=== PATIENT | male | born 1935 | race Caucasian/White ===

== ENCOUNTER 2017-05-12 11:07 | Inpatient (IN) | payer OTHER ==
[~2017-05-12] VITALS: Ht 182.9 cm; Wt 77.0 kg
[~2017-05-12 11:07] MED LIST: ALD25 PO; ASPI-COR81 M3 PO; DILTIAZEM120 M1 PO; FLA500 PO; METOPROLOL SUCC50 M1 PO; POTASSIMIN75 MG PO; POTASSIUM CHLO10 MEQ PO; XARELTO15 M1 PO
[2017-05-12 11:58] LABS: BASOPHIL % 0.5 % (0-2)
[2017-05-12 12:09] LABS: PLATELET COUNT 88 x10^3mcL (130-400); RED CELL DISTRIBUTION WIDTH 14.9 % (11.5-14.5)
[2017-05-12 12:16] LABS: CALCIUM 8.8 mg/dL (8.5-10.1); CARBON DIOXIDE 29.2 mmol/L (21-32); CHLORIDE SERUM 107 mmol/L (98-107); CREATININE SERUM 1.5 mg/dL (0.7-1.3); GLUCOSE SERUM 145 mg/dL (74-106); POTASSIUM SERUM 3.1 mmol/L (3.5-5.1); SODIUM SERUM 143 mmol/L (136-145)
[2017-05-12] MEDS ORDERED: ALDACTONE25 MG PO (13:55)
[2017-05-12] MEDS ORDERED: LOP100 PO (13:56)
[2017-05-12] MEDS ORDERED: LASIX20 MG PO (13:56)
[2017-05-12] MEDS ORDERED: LISINOPRIL40 MG PO (13:58)
[2017-05-12 14:29] LABS: T3 TOTAL 0.88 ng/mL
[2017-05-12 14:44] LABS: ALBUMIN 3.4 g/dL (3.4-5.0); BILIRUBIN DIRECT 0.2 mg/dL (0.0-0.2); BILIRUBIN TOTAL 0.7 mg/dL (0.20-1.00); TOTAL PROTEIN, SERUM 6.6 g/dL (6.4-8.2)
[2017-05-12 14:46] LABS: CHOLESTEROL/HDL RATIO 1.9
[2017-05-12 14:56] LABS: FREE T4 1.15 ng/dL (0.76-1.46); T4(THYROXINE) 8.2 ug/dL (4.7-13.3)
[2017-05-12 14:57] VITALS: BP 118/74
[2017-05-12 18:03] VITALS: BP 140/68
[2017-05-12 21:51] VITALS: BP 130/65
[2017-05-12 22:48] LABS: microscopic required? YES; urine erythrocyte 1+ (NEGATIVE)
[2017-05-13 05:42] VITALS: BP 137/71
[2017-05-13 06:18] LABS: CARBON DIOXIDE 30.2 mmol/L (21-32); CHLORIDE SERUM 106 mmol/L (98-107); CREATININE SERUM 1.4 mg/dL (0.7-1.3); GLUCOSE SERUM 103 mg/dL (74-106); MAGNESIUM 1.5 mg/dL (1.8-2.4); PHOSPHOROUS 4.1 mg/dL (2.5-4.9); POTASSIUM SERUM 3.2 mmol/L (3.5-5.1); SODIUM SERUM 142 mmol/L (136-145)
[2017-05-13 06:22] LABS: BASOPHIL % 0.2 % (0-2)
[2017-05-13 07:22] LABS: PLATELET COUNT 78 x10^3mcL (130-400); RED CELL DISTRIBUTION WIDTH 14.6 % (11.5-14.5)
[2017-05-13 08:00] VITALS: BP 138/86
[2017-05-13 13:53] VITALS: BP 121/62
[2017-05-13 17:37] VITALS: BP 115/58
[2017-05-13 19:30] VITALS: BP 103/57
[2017-05-13 21:04] VITALS: BP 110/61
[2017-05-14 06:26] LABS: CALCIUM 7.9 mg/dL (8.5-10.1); CHLORIDE SERUM 105 mmol/L (98-107); CREATININE SERUM 1.4 mg/dL (0.7-1.3); GLUCOSE SERUM 104 mg/dL (74-106); MAGNESIUM 1.8 mg/dL (1.8-2.4); PHOSPHOROUS 4.2 mg/dL (2.5-4.9); POTASSIUM SERUM 3.4 mmol/L (3.5-5.1); SODIUM SERUM 141 mmol/L (136-145)
[2017-05-14 06:45] VITALS: BP 143/80
[2017-05-14 07:06] LABS: BASOPHIL % 0.3 % (0-2); PLATELET COUNT 74 x10^3mcL (130-400); RED CELL DISTRIBUTION WIDTH 14.7 % (11.5-14.5)
[2017-05-14 10:05] VITALS: BP 105/50
[2017-05-14 13:45] VITALS: BP 113/70
[2017-05-14 18:35] VITALS: BP 103/49
[2017-05-14 21:50] VITALS: BP 131/62
[2017-05-15 06:42] VITALS: BP 133/57
[2017-05-15 06:42] LABS: BASOPHIL % 0.2 % (0-2); RED CELL DISTRIBUTION WIDTH 14.5 % (11.5-14.5)
[2017-05-15 06:50] LABS: PLATELET COUNT 77 x10^3mcL (130-400)
[2017-05-15 07:01] LABS: CALCIUM 8.4 mg/dL (8.5-10.1); CARBON DIOXIDE 29.5 mmol/L (21-32); CHLORIDE SERUM 103 mmol/L (98-107); CREATININE SERUM 1.6 mg/dL (0.7-1.3); GLUCOSE SERUM 119 mg/dL (74-106); MAGNESIUM 1.8 mg/dL (1.8-2.4); PHOSPHOROUS 4.8 mg/dL (2.5-4.9); SODIUM SERUM 141 mmol/L (136-145)
[2017-05-15 07:13] LABS: POTASSIUM SERUM 2.8 mmol/L (3.5-5.1)
[2017-05-15 09:37] VITALS: BP 124/53
[2017-05-15 17:40] VITALS: BP 130/55
[2017-05-15 21:19] VITALS: BP 123/63
[2017-05-16 05:46] VITALS: BP 131/55
[2017-05-16 06:14] LABS: CALCIUM 8.3 mg/dL (8.5-10.1); CARBON DIOXIDE 29.4 mmol/L (21-32); CHLORIDE SERUM 105 mmol/L (98-107); CREATININE SERUM 1.6 mg/dL (0.7-1.3); GLUCOSE SERUM 113 mg/dL (74-106); POTASSIUM SERUM 3.1 mmol/L (3.5-5.1); SODIUM SERUM 142 mmol/L (136-145)
[2017-05-16 06:31] LABS: BASOPHIL % 0.5 % (0-2)
[2017-05-16 06:32] LABS: PLATELET COUNT 82 x10^3mcL (130-400); RED CELL DISTRIBUTION WIDTH 14.9 % (11.5-14.5)
[2017-05-16 13:30] VITALS: BP 122/63
[2017-05-16 18:38] VITALS: BP 109/55
[2017-05-16 22:07] VITALS: BP 116/55
[2017-05-17 06:15] LABS: CALCIUM 8.6 mg/dL (8.5-10.1); CARBON DIOXIDE 27.4 mmol/L (21-32); CHLORIDE SERUM 107 mmol/L (98-107); CREATININE SERUM 1.5 mg/dL (0.7-1.3); GLUCOSE SERUM 133 mg/dL (74-106); POTASSIUM SERUM 3.4 mmol/L (3.5-5.1); SODIUM SERUM 147 mmol/L (136-145)
[2017-05-17 06:27] VITALS: BP 125/57
[2017-05-17 06:36] LABS: BASOPHIL % 0 % (0-2); PLATELET COUNT 94 x10^3mcL (130-400); RED CELL DISTRIBUTION WIDTH 14.7 % (11.5-14.5)
[2017-05-17 09:42] VITALS: BP 118/48
[2017-05-17 16:30] VITALS: BP 105/54
[2017-05-17 17:15] VITALS: BP 101/43
[2017-05-17 18:30] VITALS: BP 105/54
[2017-05-17 21:20] VITALS: BP 114/48
[2017-05-18 06:43] VITALS: BP 111/53
[2017-05-18 07:30] LABS: BASOPHIL % 0 % (0-2); PLATELET COUNT 71 x10^3mcL (130-400); RED CELL DISTRIBUTION WIDTH 15.2 % (11.5-14.5)
[2017-05-18 08:01] LABS: CALCIUM 7.8 mg/dL (8.5-10.1); CARBON DIOXIDE 28.4 mmol/L (21-32); CHLORIDE SERUM 110 mmol/L (98-107); CREATININE SERUM 1.4 mg/dL (0.7-1.3); GLUCOSE SERUM 125 mg/dL (74-106); MAGNESIUM 1.7 mg/dL (1.8-2.4); PHOSPHOROUS 3.1 mg/dL (2.5-4.9); POTASSIUM SERUM 3.1 mmol/L (3.5-5.1); SODIUM SERUM 145 mmol/L (136-145)
[2017-05-18 09:15] VITALS: BP 104/51
[2017-05-18 09:48] LABS: rbc morphology (normal/abnorm) ABNORMAL (NORMAL)
[2017-05-18 13:45] LABS: BASOPHIL % 0.2 % (0-2)
[2017-05-18 14:01] VITALS: BP 104/51
[2017-05-18 14:01] LABS: PLATELET COUNT 87 x10^3mcL (130-400); RED CELL DISTRIBUTION WIDTH 14.3 % (11.5-14.5)
[2017-05-18 15:44] LABS: PLATELET COUNT 92 x10^3mcL (130-400); RED CELL DISTRIBUTION WIDTH 13.8 % (11.5-14.5)
[2017-05-18 16:21] LABS: MONOCYTE 10 % (0-7); SEGMENTED NEUTROPHILS 84 % (37-75)
[2017-05-18 16:21] LABS: ALKALINE PHOSPHATASE 11 U/L (46-116); ALT/SGPT 20 U/L (16-63); AST/SGOT 28 U/L (15-37); CALCIUM 7.9 mg/dL (8.5-10.1); CARBON DIOXIDE 28.4 mmol/L (21-32); CHLORIDE SERUM 109 mmol/L (98-107); CREATININE SERUM 1.5 mg/dL (0.7-1.3); GLUCOSE SERUM 133 mg/dL (74-106); POTASSIUM SERUM 3.4 mmol/L (3.5-5.1); SODIUM SERUM 145 mmol/L (136-145)
[2017-05-18 16:24] LABS: rbc morphology (normal/abnorm) NORMAL (NORMAL)
[2017-05-18 16:26] LABS: ALBUMIN 2.6 g/dL (3.4-5.0); TOTAL PROTEIN, SERUM 5.7 g/dL (6.4-8.2)
[2017-05-18 16:49] VITALS: BP 117/56
[2017-05-18 21:03] VITALS: BP 111/54
[2017-05-18 21:24] VITALS: BP 124/67
[2017-05-19 01:40] VITALS: BP 122/69
[2017-05-19 05:50] VITALS: BP 134/63
[2017-05-19 06:56] LABS: CALCIUM 7.7 mg/dL (8.5-10.1); CARBON DIOXIDE 26.3 mmol/L (21-32); CHLORIDE SERUM 113 mmol/L (98-107); CREATININE SERUM 1.3 mg/dL (0.7-1.3); GLUCOSE SERUM 109 mg/dL (74-106); MAGNESIUM 1.8 mg/dL (1.8-2.4); PHOSPHOROUS 2.9 mg/dL (2.5-4.9); SODIUM SERUM 150 mmol/L (136-145)
[2017-05-19 07:06] LABS: POTASSIUM SERUM 2.8 mmol/L (3.5-5.1)
[2017-05-19 07:08] LABS: BASOPHIL % 0.1 % (0-2)
[2017-05-19 07:11] LABS: PLATELET COUNT 90 x10^3mcL (130-400); RED CELL DISTRIBUTION WIDTH 18.6 % (11.5-14.5)
[2017-05-19 10:34] VITALS: BP 133/58
[2017-05-19 14:18] VITALS: BP 104/51
[2017-05-19 16:42] LABS: CALCIUM 7.8 mg/dL (8.5-10.1); CARBON DIOXIDE 27.3 mmol/L (21-32); CHLORIDE SERUM 112 mmol/L (98-107); CREATININE SERUM 1.5 mg/dL (0.7-1.3); GLUCOSE SERUM 151 mg/dL (74-106); POTASSIUM SERUM 3.2 mmol/L (3.5-5.1); SODIUM SERUM 148 mmol/L (136-145)
[2017-05-19 17:12] VITALS: BP 125/64
== END 2017-05-19 18:25 | DRG 480 ==
LOC: ED 11:07 → MU 13:45 → DU 13:45 → MU 05-16 15:24
PROVIDERS: Emergency Medicine; Family Medicine; Internal Medicine Cardiovascular Disease; Neuromusculoskeletal Medicine, Sports Medicine; ADMIT Family Medicine
PROC: 2W3LX2Z Immobilization of Right Lower Extremity using Cast (ICD-10-PCS; 2017-05-13)
PROC: 30233N1 Transfusion of Nonautologous Red Blood Cells into Peripheral Vein, Percutaneous Approach (ICD-10-PCS; 2017-05-16)
PROC: 0HBRXZZ Excision of Toe Nail, External Approach (ICD-10-PCS; 2017-05-16)
PROC: 0HBRXZZ Excision of Toe Nail, External Approach (ICD-10-PCS; 2017-05-16)
PROC: 0HBRXZZ Excision of Toe Nail, External Approach (ICD-10-PCS; 2017-05-16)
PROC: 0HBRXZZ Excision of Toe Nail, External Approach (ICD-10-PCS; 2017-05-16)
PROC: 0HBRXZZ Excision of Toe Nail, External Approach (ICD-10-PCS; 2017-05-16)
PROC: 0HBRXZZ Excision of Toe Nail, External Approach (ICD-10-PCS; 2017-05-16)
PROC: 0HBRXZZ Excision of Toe Nail, External Approach (ICD-10-PCS; 2017-05-16)
PROC: 0HBRXZZ Excision of Toe Nail, External Approach (ICD-10-PCS; 2017-05-16)
PROC: 0HBRXZZ Excision of Toe Nail, External Approach (ICD-10-PCS; 2017-05-16)
PROC: 0HBRXZZ Excision of Toe Nail, External Approach (ICD-10-PCS; 2017-05-16)
PROC: 0QSB04Z Reposition Right Lower Femur with Internal Fixation Device, Open Approach (ICD-10-PCS; principal; 2017-05-16 08:00)
DX: S72.451A Displaced supracondylar fracture without intracondylar extension of lower end of right femur, initial encounter for closed fracture (principal); I50.43 Acute on chronic combined systolic (congestive) and diastolic (congestive) heart failure; N17.0 Acute kidney failure with tubular necrosis; I13.0 Hypertensive heart and chronic kidney disease with heart failure and stage 1 through stage 4 chronic kidney disease, or unspecified chronic kidney disease; E87.6 Hypokalemia; D53.9 Nutritional anemia, unspecified; K56.41 Fecal impaction; S09.90XA Unspecified injury of head, initial encounter; W01.0XXA Fall on same level from slipping, tripping and stumbling without subsequent striking against object, initial encounter; Z53.29 Procedure and treatment not carried out because of patient's decision for other reasons; I48.2 Chronic atrial fibrillation; B35.1 Tinea unguium; N18.3 Chronic kidney disease, stage 3 (moderate); Z91.81 History of falling; Y92.017 Garden or yard in single-family (private) house as the place of occurrence of the external cause; Y93.89 Activity, other specified; Y99.8 Other external cause status; Z79.82 Long term (current) use of aspirin; Z79.899 Other long term (current) drug therapy; Z88.1 Allergy status to other antibiotic agents; Z88.8 Allergy status to other drugs, medicaments and biological substances; Z83.3 Family history of diabetes mellitus; Z82.49 Family history of ischemic heart disease and other diseases of the circulatory system; Z82.3 Family history of stroke
CPT/HCPCS: 76001; 83880; 84439; 92610; 97110-GP; 97116-GP; 97164; 97530-GP; C1713; J0690; J1630; J1644; J1940; J1956; J2250; J2270; J2405; J2704; J3010; J3475; J3480; J3490; J7030; J7040; J7050; J7120; P9016; Q0092; Q0163

== ENCOUNTER 2019-01-18 16:30 | Inpatient (IN) | payer OTHER ==
[~2019-01-18] VITALS: Ht 185.4 cm; Wt 69.2 kg
[~2019-01-18 16:30] MED LIST changes: +ALDACTONE25 MG PO; +LASIX20 MG PO; +LISINOPRIL40 MG PO; +LOP100 PO
--- NOTE | 2019-01-18 16:40 | NUR ---
PT PRESENTS TO THE ED TODAY WITH C/C OF ABD PAIN. 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 DAUGHTER IS A POOR HISTORIAN. UNABLE TO TELL ME HOW LONG PT HAS HAD BILATERAL PITTING EDEMA TO LOWER EXTREMITIES. PT'S ABD ALSO DISTENDED AND FIRM. PT REPORTS THAT HE IS CURRENTLY NOT HAVING PAIN. PT DOES HAVE SIGNIFICANT HX OF DEMENTIA AND ALZHEIMER'S. PT IS AWAKE AND ALERT, RESP E/U, NAD NOTED. AWAITING MSE.
[2019-01-18 16:53] LABS: BASOPHIL % 0.6 % (0-2)
[2019-01-18 17:00] LABS: PLATELET COUNT 88 x10^3mcL (130-400)
[2019-01-18 17:15] LABS: CALCIUM 8.6 mg/dL (8.5-10.1); CARBON DIOXIDE 27.5 mmol/L (21-32); CHLORIDE SERUM 112 mmol/L (98-107); CREATININE SERUM 1.5 mg/dL (0.7-1.3); GLUCOSE SERUM 107 mg/dL (74-106); POTASSIUM SERUM 3.6 mmol/L (3.5-5.1); SODIUM SERUM 146 mmol/L (136-145)
[2019-01-18 17:20] LABS: ALBUMIN 3.4 g/dL (3.4-5.0); ALKALINE PHOSPHATASE 25 U/L (46-116); ALT/SGPT 18 U/L (16-63); AST/SGOT 24 U/L (15-37); BILIRUBIN TOTAL 0.41 mg/dL (0.20-1.00); TOTAL PROTEIN, SERUM 7.1 g/dL (6.4-8.2)
--- NOTE | 2019-01-18 17:27 | NUR ---
PT'S DAUGHTER STUART AT BEDSIDE. GAVE ME INFORMATION FOR PT'S DETENTION, [facility] WHERE PT TYPICALLY RESIDES AND INFORMATION FOR [facility] TRANSPORT IF PT WERE TO BE DISCHARGED HOME TODAY. COPIES MADE, PLACED IN CHART.
--- NOTE | 2019-01-18 17:52 | NUR ---
PT RESTING COMFORTABLY IN GURNEY WITH EYES CLOSED. RESP E/U, GOOD CHEST RISE AND FALL NOTED. NAD NOTED. CALL LIGHT IN REACH. PT REMAINS ON FULL CM AND PULSE OXIMETRY FOR MONITORING.
--- NOTE | 2019-01-18 18:46 | NUR ---
PT REMAINS ASLEEP IN GURNEY, GOOD CHEST RISE AND FALL VISUALIZED, RESP E/U, NAD NOTED.
--- NOTE | 2019-01-18 18:50 | NUR ---
SPOKE WITH [facility]ING WITH [facility]. REPORTED CRITICAL FINDING OF CHEST XR. DR AGUILERA MADE AWARE.
--- NOTE | 2019-01-18 19:16 | NUR ---
REPORT GIVEN TO ELDER MCGEE TO ASSUME CARE FOR PT.
--- NOTE | 2019-01-18 19:41 | NUR ---
PT OFF THE FLOOR FOR CT.
--- NOTE | 2019-01-18 19:50 | NUR ---
PT BACK ON FLOOR FROM CT.
--- NOTE | 2019-01-18 20:20 | NUR ---
PT LYING CALMLY IN BED SLEEPING. NO DISTRESS NOTED. PT CALM AND COOPERATIVE UPON TAKING VITALS.
--- NOTE | 2019-01-18 22:11 | NUR ---
DAUGHTER LAITH ARRIVED AT BEDSIDE FOR UPDATES. SHE GAVE ME THE PHONE NUMBER FOR HERSELF AND THE PT'S TIM. THE NUMBER TO CALL IS [phone].
--- NOTE | 2019-01-18 22:21 | NUR ---
CALLED REPORT TO ARELY MITCHELL. ALL QUESTIONS AND CONCERNS ANSWERED.
--- NOTE | 2019-01-18 22:27 | NUR ---
PT OFF FLOOR, TRANSFER TO MED SURG ACCOMPANIED BY ERT. PT IN NO DISTRESS AT THIS TIME. FAMILY AWARE OF TRANSFER.
[2019-01-18 23:24] VITALS: BP 118/55
--- NOTE | 2019-01-18 23:44 | NUR ---
RECEIVED PT FROM ER. PT ADMIT FOR ABD PAIN AND POSSIBLE ALYSA COLON. PT IS A/O X3, VERY FORGETFUL, BUT ABLE TO ANSWER MOST QUESTIONS AND FOLLOW COMMAND. LUNG SOUND WHEEZING ERIKA, DENY ANY SOB, PO2 99% IN ROOM AIR. PT DENY ANY CHEST PAIN OR DISCOMFORT, BOWEL SOUND PRESENT ALL 4 QUADRANTS, DISTENTED. C/O ABD PAIN 5/10, PEDAL PULSE PRESENT BOTH FEET, +3 EDEMA BLE. THERE ARE MULTIPLE BLACK MOLES AT RIGHT SIDE OF FACE, ECCHYMOSIS AT BOTH HANDS, NONBLANCHABLE ERYTHEMA AT COCCYX AREA. RED DISCOLORATION AT BOTH LOWER LEGS. IV AT LEFT FA, NO LEAKING NO INFILTRATION. ALL ADLS ASSIST, ALL NEED MET, CALL LIGHT IN REACH, WILL CONTINUE TO MONITOR.
--- NOTE | 2019-01-18 23:47 | NUR ---
PT RESTING WITH EYES CLOSED. EASILY AROUSABLE WITH VERBAL STIMULI. DENIES ABD PAIN THUS FAR. IV INTACT ON THE LEFT FOREARM INFUSING WITH D5 NS AT 50 ML/HR. MADE PT COMFORTABLE. PLACED CALL LIGHT WITH IN REACH. WILL CONTINUE TO MONITOR.
[2019-01-19 01:22] LABS: FREE T4 1.15 ng/dL (0.76-1.46); T4(THYROXINE) 8.7 ug/dL (4.7-13.3)
[2019-01-19 02:33] LABS: T3 TOTAL 0.84 ng/mL
[2019-01-19 06:28] VITALS: BP 109/61
[2019-01-19 06:36] LABS: BASOPHIL % 0.5 % (0-2)
[2019-01-19 06:37] LABS: CALCIUM 8.3 mg/dL (8.5-10.1); CARBON DIOXIDE 24.6 mmol/L (21-32); CHLORIDE SERUM 111 mmol/L (98-107); CREATININE SERUM 1.3 mg/dL (0.7-1.3); GLUCOSE SERUM 91 mg/dL (74-106); POTASSIUM SERUM 3.4 mmol/L (3.5-5.1); SODIUM SERUM 145 mmol/L (136-145)
[2019-01-19 06:56] LABS: PLATELET COUNT 85 x10^3mcL (130-400); RED CELL DISTRIBUTION WIDTH 14.8 % (11.5-14.5)
--- NOTE | 2019-01-19 07:03 | NUR ---
PT RESTING WITH EYES CLOSED. EASILY AROUSABLE WITH VERBAL STIMULI. NO C/O ABD PAIN THUS FAR. IV INTACT AND INFUSING ORDERED. MADE PT COMFORTABLE. WILL ENDORSE TO THE AM NURSE ACCORDINGLY.
--- NOTE | 2019-01-19 07:10 | NUR ---
RECEIVED PT FROM RHEA MITCHELL. PT FOUND RESTING IN BED WITH BOTH EYES CLOSED. EASILY AROUSABLE TO VERBAL STIMULI. NO S/S OF ACUTE DISTRESS. NO SOB ON ROOM AIR. NO CHEST PAIN. ABLE TO REPOSITION INDEPENDENTLY. WILL ASSIST PRN. IV WNL TO LFA, NO REDNESS, NO SWELLING, NO INFILTRATION. PATENT. IV FLUIDS FLOWING. PT CALM/COOPERATIVE. INSTRUCTED TO USE CALL LIGHT TO CALL FOR ASSISTANCE PRN. VERBALIZED UNDERSTANDING. WILL CONT. TO MONITOR.
[2019-01-19 08:56] VITALS: BP 126/69
--- NOTE | 2019-01-19 11:03 | NUR ---
FLEET ENEMA GIVEN PER PHYSICIAN ORDER. TOLERATED PROCEDURE WELL. AA/OX3. BSC AT BEDSIDE. WILL CONT. TO MONITOR.
--- NOTE | 2019-01-19 15:07 | NUR ---
PT NAUSEOUS, GIVEN EMESIS BAGS. HOB ELEVATED. DR. POWELL AWARE. NEW ORDERS ENTERED. WILL GIVE MED FOR NAUSEA. AA/OX4. NO SOB ON ROOM AIR. IV WNL TO LFA, IV FLUIDS FLOWING. PT CALM/COOPERATIVE. BED IN LOW POSITION. CALL LIGHT WITHIN REACH. WILL CONT. TO MONITOR.
[2019-01-19 17:17] VITALS: BP 129/54
--- NOTE | 2019-01-19 18:45 | NUR ---
PT AA/OX1 (SELF), CONFUSED, PT STATES, "I'M AT [employer] [facility] THE TH[facility] FLO[employer]" PT RAMBLES AT TIMES, FORGETFUL. THOUGHT PROCESS DISORIENTED. NO S/S OF ACUTE DISTRESS. NO SOB ON ROOM AIR. NO CHEST PAIN. CALM/COOPERATIVE AT THIS TIME. IV WNL TO LFA, NO REDNESS, NO SWELLING, NO INFILTRATION. PATENT AND FLUSHES WELL. IVF FLOWING. BED IN LOW POSITION. CALL LIGHT WITHIN REACH. FALL PREC IN PLACE. DENIES N/V AT THIS TIME. WILL ENDORSE TO ONCOMING SHIFT.
--- NOTE | 2019-01-19 20:40 | NUR ---
PATIENT RECIEVED FROM PREVIOUS SHIFT. PATIENT RESTING IN BED. PATIENT DENIES PAIN OR DISCOMFORT. NO SIGNS OF DISTRESS. PATIENT IS CONFUSED. PATIENT A/OX1 TO PERSON. PATIENT IS ABLE TO FOLLOW SIMPLE COMMANDS. RR EVEN UNLABORED ON RA NO ACUTE DISTRESS. PATIENT NOT ON TELE. DENIES CHEST PAIN. IV TO LEFT FA, INFUSING. PATIENT ON BOWEL PREP FOR PROCEDURE TOMORROW. PATIENT INSTRUCTED TO USE CALL LIGHT IF IN NEED OF ASSISTANCE. BED IN LOW POSITION. CALL LIGHT WITHIN REACH. WILL CONTINUE TO MONITOR.
--- NOTE | 2019-01-19 21:56 | NUR ---
PATIENT IV SITE LEFT FA SHOWED S/S OF INFLITRATION. IV SITE SWOLLEN AND RED. IV IN LEFT FA REMOVED. NEW IV SITE PLACED IN RIGHT FA INFUSING ADQUATELY. WILL CONTINUE TO MONITOR.
[2019-01-19 22:00] VITALS: BP 116/57
--- NOTE | 2019-01-20 01:05 | NUR ---
NO COMPLAINTS NOTED AT THIS TIME. EYES CLOSED, APPEARS ASLEEP, EASILY AROUSABLE. RESP. EVEN AND UNLABORED. NO ACUTE DISTRESS NOTED. CALL LIGHT WITHIN REACH. WILL CONTINUE TO MONITOR.
--- NOTE | 2019-01-20 03:01 | NUR ---
PATIENT APPEARS SLEEP. PATIENT IS EASILY AROUSABLE. PATIENT SHOWS NO SIGNS OF ACUTE DISTRESS AT THIS TIME. RR EVEN AND UNLABORED. CALL LIGHT WITHIN REACH. WILL CONTINUE TO MONITOR.
[2019-01-20 05:33] VITALS: BP 104/71
--- NOTE | 2019-01-20 05:56 | NUR ---
PATIENT REMAINS CONFUSED AT TIMES. ABLE TO FOLLOW SIMPLE COMMANDS. PATIENT SHOWS NO S/S OF DISTRESS AT THIS TIME. RR EVEN AND UNLABORED. IV SITE CDI INFUSING VIA RIGHT FA. PATIENT INCONTINENT OF URINE AND STOOL. PATIETN PASSING SOFT BROWN COLOR STOOL.B KEPT CLEAN AND DRY TURNED AND REPOSITIONED FOR COMFORT. PATIENT REMAINS NPO AWAITING PROCEDURE. PATIENT DENIES PAIN AT THIS TIME. CALL LIGHT WITHIN REACH . WILL ENDORSE CARE TO INCOMING SHIFT.
--- NOTE | 2019-01-20 07:30 | NUR ---
PT ENDORSE TO ME THIS AM. PT WS COMING BACK VIA GURNEY FROM AY. AA/O X1 TO SELF. PT WAS FULL OF SOFT DARK STOOL. BREATHING EVEN AND UNLABORED ON RA/LUNGS DIM BLL, NO ACUTE RESP DISTRESS OR SOB NOTED. MEDSURG. DENIES ANY CP OR PRESSURE/ NO SIGN OF DISTRESS NOTED. +2 PITTING NOTED BLE. BOWEL SOUNDS ACTIVE IN ALL FOUR QUADS NOTED. LAST BM THIS AM/ SOFT. INCONTINENT. STRICT I & O/ GEN WEAKNESS NOTED/ NEEDS ASSIST. SCATTERED ECCHYMOSIS BUE [place]. BLANCHABLE REDNESS TO COCCYX [place]/ APPLYING ZG TO AREA. IV TO THE RFA INTACT AND PATENT/ HEPLOCKED. NO REDNESS OR SWELLING NOTED. BED ALARM ON/ CALL LIGHT IN REACH. WILL CONTINUE PLAN OF CARE.
[2019-01-20 07:31] LABS: BASOPHIL % 0.4 % (0-2)
[2019-01-20 07:34] LABS: PLATELET COUNT 85 x10^3mcL (130-400)
[2019-01-20 08:12] LABS: CALCIUM 8.1 mg/dL (8.5-10.1); CARBON DIOXIDE 22.3 mmol/L (21-32); CHLORIDE SERUM 113 mmol/L (98-107); CREATININE SERUM 1.2 mg/dL (0.7-1.3); GLUCOSE SERUM 119 mg/dL (74-106); SODIUM SERUM 147 mmol/L (136-145)
[2019-01-20 08:58] LABS: POTASSIUM SERUM 2.8 mmol/L (3.5-5.1)
[2019-01-20 09:26] VITALS: BP 136/67
--- NOTE | 2019-01-20 09:47 | NUR ---
RECEIVED LAB RESULT WITH K+ IS 2.8, CALLED AND INFOREMD TO DR. GARCIA. WILL ADMINISTER KCL 40 MEQ. IV. ORDERED.
--- NOTE | 2019-01-20 14:20 | NUR ---
PT TOLERATED 100% OF HIS LUNCH. DENIES ANY SOB OR DISCOMFORT. FAMILY AT BEDSIDE. WILL CONTINUE PLAN OF CARE.
[2019-01-20 15:57] VITALS: BP 129/72
[2019-01-20 16:30] VITALS: BP 129/72
--- NOTE | 2019-01-20 18:57 | NUR ---
NO ACUTE CHANGES AT THIS TIME. NO ACUTE RESP DISTRESS OR SOB NOTED. DENIES ANY ABD PAIN OR DISCOMFORT. IV TO THE RFA INTACT AND PATENT/ NO REDNESS OR SWELLING NOTED. CALL LIGHT IN REACH. BED IN LOW POSITION. BED ALARM ON. 1:1 AT BEDSIDE. WILL ENDORSE TO INCOMING RN.
[2019-01-20 20:08] VITALS: BP 125/69
--- NOTE | 2019-01-20 20:39 | NUR ---
PT RESTING. NO S/S OF DISTRESS AT THIS TIME. PT A/OX1 TO SELF. CONFUSED AT TIMES. [place] BILATERALLY. MEDSURG, NO TELE. ALL PULSES PALABLE +2 PITTING BLE. LUNGS SOUNDS DIMINSHED IN BILATERAL BASES. PT INCONTINENT, LAST BM 01/20/19. PT HAS GENERALIZED WEAKNESS. IV VIA RFA INFUSING WELL, NO REDNESS OR SWELLING NOTED. SCATTERED ECCHYMOSIS BLE. BLANCHABLE REDNESS ON COCCYX. BLE DISCOLORATION/REDNESS. CALL LIGHT WITHIN REACH. BED IN LOWEST POSITION. WILL CONTINUE TO MONITOR.
--- NOTE | 2019-01-20 22:49 | NUR ---
REDNESS NOTICED TO SHAFT OF PENIS WHEN CLEANED BY ADMISSION LIAISON, PHOTOS TAKEN. WILL CONTINUE TO MONITOR.
--- NOTE | 2019-01-21 00:51 | NUR ---
PT CURRENTLY RESTING IN BED, NO ACUTE DISTRESS. WILL CONTINUE TO MONITOR.
[2019-01-21 05:35] VITALS: BP 118/68
--- NOTE | 2019-01-21 06:00 | NUR ---
PT RESTING IN BED. NO ACUTE DISTRESS NOTED AT THIS TIME. PT SLEPT THROUGHOUT THE NIGHT. IV INTACT AND INFUSING WELL. ALL PT NEEDS WERE MET THROUGHOUT SHIFT. NO CHANGES NOTED. SIDE RAILS X2 UP. BED IN LOWEST POSITION. CALL LIGHT WITHIN REACH. WILL ENDORSE CARE TO ONCOMING SHIFT.
[2019-01-21 06:38] LABS: CALCIUM 7.7 mg/dL (8.5-10.1); CARBON DIOXIDE 23.8 mmol/L (21-32); CHLORIDE SERUM 113 mmol/L (98-107); CREATININE SERUM 1.2 mg/dL (0.7-1.3); GLUCOSE SERUM 123 mg/dL (74-106); POTASSIUM SERUM 3.5 mmol/L (3.5-5.1); SODIUM SERUM 146 mmol/L (136-145)
--- NOTE | 2019-01-21 07:30 | NUR ---
PT ENDORSE TO ME THIS MORNING. LAYING IN BED RESTING. AA/O X1 TO SELF. BREATHING EVEN AND UNLABORED ON RA UPPER AIR WAYS/ DIM BLL. NO ACUTE RESP DISTRESS OR SOB NOTED. MEDSURG/DENIES ANY CP OR PRESSURE. 1:1 AT BEDSIDE. PULSES PRESENT/ +2 PITTING BLE. BOWEL SOUNDS ACTIVE IN ALL FOUR QUADS NOTED., LAST BM 01/21 LOOSE/ DARK IN COLOR. INCONT, STRICT I & O, GEN WEAKNESS, IS ABLE TO REPOISITON SELF AT TIMES/ ASSIST AT TIMES. SCATTERED ECCHYMOSIS BUE INTACT. BLANCHABALE REDNESS OT COCCYX / [place] APPLYING ZGUARD. IV TO THE RFA INFUSING AT 50ML PER/HR. NO REDNESS OR SWELLING NOTED.CALL LIGHT IN REACH. BY NURSING STATION. BED ALARM ON. WILL CONTINE TO MONITOR.
[2019-01-21 09:33] VITALS: BP 127/76
--- NOTE | 2019-01-21 12:30 | NUR ---
PER DR. CHATMAN ORDERS TRIED TO GET PT UP IN A CHAIR, VERY WEAK AND UNABLE TO AMBULATE FROM BED TO CHAIR. PT NEEDED TWO NURSE ASSIST. ASSISTED MR TEACHER TO CLEAN PATIENT, HAD LARGE BM (CLEAR AND DARK). APPLIED ZGUARD AND OPTIFORM TO BUTTOCKS AREA FOR PROTECTION DUE TO REDNESS. WILL CONTINUE TO MONITOR.
[2019-01-21 13:15] VITALS: BP 130/72
--- NOTE | 2019-01-21 14:44 | NUR ---
PT TOLERATED 100% OF HIS LUNCH. DENIES ANY ABD PAIN OR DISCOMFORT. FAMILY AT BEDSIDE. CALL LIGHT IN REACH. BED IN LOW POSITION. WILL CONTINUE PLAN OF CARE.
[2019-01-21 17:50] VITALS: BP 130/72
--- NOTE | 2019-01-21 18:31 | NUR ---
NO ACUTE CHANGES AT THIS TIME. NO ACUTE RESP DISTRESS OR SOB NOTED. PT DENIES ANY CP OR PRESSURE. TOTAL BM /LOOSE DARK X5. CTA OPTIFORM BUTTOCKS APPLIED WITH ZGUARD APPLIED FOR PROTECTION. IV TO THE RFA INTACT AND PATIENT, INFUSING AT 20 ML/HR. WILL ENDORSE TO INCOMING RN.
--- NOTE | 2019-01-21 20:19 | NUR ---
RECEIVED PT IN BED AAOX1 SITTER AT THE BEDSIDE FOR SAFETY , ALVA GOSUNDS DIMINISHED NO RESP DISTRESS NOTED, ABD DISTENDED BS HYPOACTIVE MULTIPLE LOOSE STOOL NOTED, SKIN WARM TO TOUCH REDNESS TO BUTTOCKS Z-GUARD FOR TREATMENT PT HAS OPTIFOAM INPLACE . PIV TO RFA INTACT INFUSING WELL , WILL CON'T TO MONITOR AND TURN PT Q2.
[2019-01-22 00:50] VITALS: BP 126/75
--- NOTE | 2019-01-22 01:24 | NUR ---
PT'S IN BED WITH EYES CLOSED , SITTER AT THE BEDSIDE FOR SAFETY , PIV INTACT INFUSING WELL.
[2019-01-22 05:56] VITALS: BP 131/77
--- NOTE | 2019-01-22 06:49 | NUR ---
NO CHANGES OF CONDITION NOTED, ALL DUE MEDS GIVEN NO REACTION NOTED, PT'S ABD REMAINED DISTENDED HARD TO TOUCH , MULTIPLE LOOSE STOOL NOTED . SITTER AT THE BEDSIDE FOR SAFETY , PIV INTACT INFUSING WELL .
[2019-01-22 07:06] LABS: BASOPHIL % 0.6 % (0-2)
[2019-01-22 07:07] LABS: CALCIUM 7.7 mg/dL (8.5-10.1); CARBON DIOXIDE 22.1 mmol/L (21-32); CHLORIDE SERUM 110 mmol/L (98-107); CREATININE SERUM 1.3 mg/dL (0.7-1.3); GLUCOSE SERUM 104 mg/dL (74-106); POTASSIUM SERUM 3.5 mmol/L (3.5-5.1); SODIUM SERUM 144 mmol/L (136-145)
[2019-01-22 07:29] LABS: PLATELET COUNT 90 x10^3mcL (130-400); RED CELL DISTRIBUTION WIDTH 14.7 % (11.5-14.5)
--- NOTE | 2019-01-22 08:21 | NUR ---
AAO TIMES 4. NO TELE. LUNGS CTA BUL, DIMINISHED BASES. ABDOMEN FIRM AND DISTENDED, BS'S HYPOACTIVE. PERIPHERAL PULSES PALPABLE. TRACE EDEMA BLE. BUTTOCKS RED, BLANCHEBLE. INCONTINENT OF BOWEL AND BLADDER. APPLYING Z GUARD TO BUTTOCK/CHRISTOPH AREA. IV SITE RFA CDI, PATENT.
[2019-01-22 09:35] VITALS: BP 126/73
--- NOTE | 2019-01-22 16:50 | NUR ---
DR BRADFORD NOTIFIED THAT DR CHATMAN PROGRESS NOTES SHOWS HE RECOMENDS A COLECTOMY. DR BRADFORD SAYS HE WILL CALL DR Chris TAPIA'S OFFICE.
--- NOTE | 2019-01-22 17:15 | NUR ---
DR CARDONA CAME TO SEE THE PATIENT TO ASSESS FOR SURGERY. HIS FAMILY WASNT PRESENT, AND SHE TRIED TO CALL THEM AND THEY WEREN'T ANSWERING THEIR PHONES. .
--- NOTE | 2019-01-22 17:50 | NUR ---
AAO TO PERSON, AND PLACE SOMETIMES. NO TELE. IV SITE CDI. NO C/O PAIN. COOPERATIVE. PATIENTS CALLED ME, AND I WAS ABLE TO GET DR CARDONA TO CALL HER SINCE SHE IS HOME NOW.
[2019-01-22 18:59] VITALS: BP 142/77
--- NOTE | 2019-01-22 19:25 | NUR ---
ON INITIAL NURSING ROUND,IV SITE RED AND IRRITATED.WILL START A NEW ONE.WILL ASK ARELY URENA.
--- NOTE | 2019-01-22 19:35 | NUR ---
NEW IV SITE LFA 20 GUAGE WITH GOOD BLOOD RETURN,THANKS ROMEL.
--- NOTE | 2019-01-22 20:00 | NUR ---
SHIFT REASSESSMENT DONE.PATIIENT A /O X1.TOTAL CARE.BREATHING EASY.MAX ASSIST TO AMBULATE PER REPORT DAYTIME.IVF INFUSING LFA,NEW IV SITE,MEDSURG PATIENT.REDNESS BUITT/ZGUARD APPLIED START OF THE SHIFT.INCONTINENT B/B.GOOD SKIN CARE PROVIDED.PITTING EDEMA NOTED LEGS.ON LASIX.CALL LIGHT IN REACH,HAS EXTRA NURSE TO ATTEND EXTRA CARE.
--- NOTE | 2019-01-22 21:00 | NUR ---
SCHEDULED PM MEDS GIVEN WITH APPLE SAUCE,SWALLOWS WELL.IVF INFUSING AT 20 CC/ HOUR.
[2019-01-22 21:17] VITALS: BP 128/69
--- NOTE | 2019-01-23 03:22 | NUR ---
CHECKED AT INTERVALS FOR NEEDS AND SAFETY.IVF INFUSING.BREATHING EASY.CALL LIGHT IN REACH.EXTRA HELPER IN THE ROOM.
[2019-01-23 05:39] VITALS: BP 118/68
--- NOTE | 2019-01-23 06:15 | NUR ---
I AND O MEASURED.NO DISTRESS THIS SHIFT.REMAINS A TOTAL CARE.WILL ENDORSE TO NEXT SHIFT.
--- NOTE | 2019-01-23 08:00 | NUR ---
AAO TO SELF. NO TELE. MED SURG PATIENT. LUNGS CTA BUL, DIMINISHED BASES. O2 SAT ON RA 95%. BS'S HYPOACTIVE. ABDOMEN FIRM AND DISTENDED. PERIPHERAL PULSES PALPABLE. TRACE EDEMA BLE. NO C/O PAIN. DR CARDONA CAME THIS AM, SHE HAD TALKED WITH THE PATIENTS , AND SHE AGREED TO THE MEDICATION NEOSTIMINE INSTEAD OF SURGERY AT THIS TIME. DR CARDONA STATES SHE WANTS THE PATIENT TO GO TO ICU TO GET THIS MEDICATION BECAUSE THE SIDE AFFECTS CAN BE RISKY AND SHE WANTS CLOSER MONITORING. PHARMACY MADE THE MEDICATION AVAILABLE, I AM TRYING TO REACH THE SPINE NURSE AND THEN THE DR OF THIS MEDICAL GROUP TO SEE IF WE CAN SEND THE PATIENT TO ICU. TURNING Q 2 HOURS. APPLYING Z GUARD AND OPTIFOAM TO SACRAL REDNESS. AIR MATTRESS APPLIED. HE HAS CONSTANT RECTAL OOZING OF STOOL, HE IS BEING CLEANED FREQUENTLY.
[2019-01-23 09:18] VITALS: BP 115/64
[2019-01-23 10:57] LABS: BASOPHIL % 0.5 % (0-2)
[2019-01-23 11:05] LABS: ALKALINE PHOSPHATASE 13 U/L (46-116); ALT/SGPT 16 U/L (16-63); AST/SGOT 23 U/L (15-37); BILIRUBIN TOTAL 0.47 mg/dL (0.20-1.00); CARBON DIOXIDE 26.7 mmol/L (21-32); CHLORIDE SERUM 111 mmol/L (98-107); CREATININE SERUM 1.4 mg/dL (0.7-1.3); GLUCOSE SERUM 140 mg/dL (74-106); POTASSIUM SERUM 4.1 mmol/L (3.5-5.1); SODIUM SERUM 145 mmol/L (136-145)
[2019-01-23 11:09] LABS: ALBUMIN 2.8 g/dL (3.4-5.0); TOTAL PROTEIN, SERUM 6.1 g/dL (6.4-8.2)
[2019-01-23 12:10] LABS: PLATELET COUNT 101 x10^3mcL (130-400); RED CELL DISTRIBUTION WIDTH 15.2 % (11.5-14.5)
--- NOTE | 2019-01-23 20:24 | NUR ---
SHIFT ASSESSMENT DONE, PT AAO X2 VERBAL FOLLOWS SOME COMMANDS, DENIES PAIN NOT IN ANY DISTRESS FOR POSSIBLE TRANSFER TO ICU AWAITING FOR BED AVAILABILITY, NON TELE NO CP OR PRESSURE, PT SOAKED WET BM X1 CLEANED UP AND KEEP DRY, INTACT DRESSING TO BOTH BUTTOCKS, REPOSITIONED TO COMFORT, IVF D5 1/2NS +20K+ INFUSING @ 20CC/HR IV ACCESS LFA PATENT NON INFIL, CONT TO MONITOR AND PROCEED TO CURRENT PLAN OF CARE.
[2019-01-23 20:37] VITALS: BP 112/50
--- NOTE | 2019-01-23 21:44 | NUR ---
REPORT GIVEN TO SIA MCGEE PT GOING TO ICU 5.
--- NOTE | 2019-01-23 21:45 | NUR ---
RECEIVED REPORT FROM MS RN, ALL QUESTIONS AND CONCERNS ADDRESSED.
--- NOTE | 2019-01-23 22:25 | NUR ---
PT ARRIVED TO UNIT AT THIS TIME AND PLACED IN BED 5. PT PLACED ON FULL MYSQL DBA AND VS STABLE AT THIS TIME.
[2019-01-23 23:26] VITALS: BP 133/73
[2019-01-24 03:33] VITALS: BP 128/87
--- NOTE | 2019-01-24 04:30 | NUR ---
BOAT LOADER HELPER ALEXUS AT BEDSIDE FOR BLOOD DRAW
[2019-01-24 05:00] LABS: BASOPHIL % 0.4 % (0-2)
[2019-01-24 05:09] LABS: PLATELET COUNT 106 x10^3mcL (130-400); RED CELL DISTRIBUTION WIDTH 15.4 % (11.5-14.5)
[2019-01-24 05:18] LABS: ALKALINE PHOSPHATASE 16 U/L (46-116); ALT/SGPT 11 U/L (16-63); AST/SGOT 27 U/L (15-37); BILIRUBIN DIRECT 0.16 mg/dL (0.0-0.2); BILIRUBIN TOTAL 0.47 mg/dL (0.20-1.00); CALCIUM 8.2 mg/dL (8.5-10.1); CARBON DIOXIDE 25.5 mmol/L (21-32); CHLORIDE SERUM 110 mmol/L (98-107); CREATININE SERUM 1.3 mg/dL (0.7-1.3); GLUCOSE SERUM 123 mg/dL (74-106); POTASSIUM SERUM 3.9 mmol/L (3.5-5.1); SODIUM SERUM 145 mmol/L (136-145); TOTAL PROTEIN, SERUM 6.7 g/dL (6.4-8.2)
--- NOTE | 2019-01-24 06:09 | NUR ---
DR BARTLETT AT BEDSIDE FOR FOLLOW UP
--- NOTE | 2019-01-24 07:30 | NUR ---
RECIEVED REPORT FROM ARELY HENDRIX TO ASSUME ALL CARES. ALL QUESTIONS ARE CONCERNS ADDRESSED. PATIENT IS CURRENTLY SLEEPING. RESPIRATIONS ARE EQUAL AND SYMMETRICAL. NO SIGNS OF DISTRESS. VSS. IV FLUIDS INFUSING TO LFA IV WITH NO SIGNS OF INFILTRATION NOTED. BED TO LOWEST POSITION, SIDE RAILS UP X2, CALL LIGHT WITHIN REACH. WILL CONTINUE TO MONITOR.
[2019-01-24 07:55] VITALS: BP 118/73
[2019-01-24 09:16] VITALS: Ht 185.4 cm; Wt 69.2 kg
--- NOTE | 2019-01-24 09:26 | NUR ---
PATIENT URINATED X1 LARGE YELLOW AMOUNT. PATIENT CLEANED UP, PARTIAL LINEN CHANGED. BLANCHABLE REDNESS NOTED TO SACRUM AREA, Z-GUARD AND OPTIFOAM APPLIED C/D/I. PATIENT REPOSITIONED TO RIGHT SIDE WITH HOB ELEVATED AND PILLOWS IN PLACE TO ALLEVIATE PRESSURE POINTS. WILL CONTINUE TO MONITOR.
--- NOTE | 2019-01-24 10:39 | NUR ---
DR. PERLA TALKED WITH PATIENT REGARDING COLONOSCOPY PROCEDURE. ALL QUESTIONS AND CONCERNS ADDRESSED. ARELY GONZALEZ AT BEDSIDE AND OBTAINED CONSENT FORMS. WILL CONTINUE TO MONITOR.
--- NOTE | 2019-01-24 10:57 | NUR ---
FLEET ENEMA GIVEN. PATIENT HAD A LOT OF FLATUENCE. PATIENT CURRENTLY ON BEDPAN. PRIOR TO ENEMA PATIENT HAD ANOTHER LOOSE BOWEL MOVEMENT IN BED. WILL CONTINUE TO MONITOR.
--- NOTE | 2019-01-24 11:28 | NUR ---
BED [place] REMOVED WITH MINIMAL WATERY STOOL NOTED. PATIENT TURNED ONTON RIGHT SIDE PER DR. PERLA ORDER. WILL CONTINUE TO MONITOR.
[2019-01-24 11:29] VITALS: BP 143/71
--- NOTE | 2019-01-24 15:05 | NUR ---
COLONOSCOPY DONE BY DR. PERLA. LARGE AMOUNT OF LOOSE STOOL REMOVED. RECTAL TUBE SECURED IN PLACE BY DR. PERLA. PATIENT TO REMAIN ON RIGHT SIDE. WILL FOLLOW AND CONTINUE TO MONITOR.
--- NOTE | 2019-01-24 15:08 | NUR ---
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 PMHx: A-Fib, HTN, Colonic distension, early dementia PSHx: None Labs: (01/24/19) Na 145, K 3.9, BG 123H, BUN 19H, Cr 1.3, A1c 6, WBC 8.2, H/H 12.5L/36L Meds: Amitiza, D5%, Dulcolax, KCL, Prostigmin, Senokot, Tylenol Diet: Regular PO Intake: (01/23) B: 20% L: 10% D: 15% (01/22) B/L: 10% D: 15% (01/21) L: 50% D: refused Ht: 73" (185 cm) Wt: 157# (71.2 kg) BMI: 20.7 (Slightly underweight for advanced age) IBW: 184# %IBW: 85% UBW: Unknown Age: 83 y/o elderly male Food Allergies: NKFA Skin: Scattered ecchymosis throughout extremities, blanchable redness to coccyx region Arsenio: 14 Edema: None GI: Last BM x (01/24) Per H&P, pt. admitted with abdominal pain, N/V associated with history of dilated colon. No acute events overnight per provider. Otherwise, no acute events overnight per provider. KUB Abdomen conducted on 01/23/19 with no major changes since previous study on 01/21/19 which showed severe colonic distension and fecal retention in the colon per provider notes. Barium enema procedure was also conducted on 01/19/19, but findings limited d/t massive colonic distension per provider notes. Pt. transferred to ICU for medication Neostimine d/t potential side effects on 01/23/19. Noted with poor appetite/PO intake and continued bouts of nausea without emesis per RN notes. Colonoscopy procedure during visit; unable to ask nutrition related questions. Rectal tube inserted during colonoscopy for stool drainage. Problem with: +nausea, no emesis. +loose BM; likely d/t laxative regimen, acute illness Problems with: Chewing: N Swallowing: N Current appetite: Poor Recent wt change: None %wt change: N/A Vitamin/Supplement use: None Special diet at home: Regular Physical activity: None Education: No diet education provided during visit d/t cognitive decline. Estimated Nutritional Needs Based on actual body weight 71.2 kg: Energy: 6575-9489 kcal/d (25-30 kcal/kg- geriatric maintenance) Protein: 71-85 g/d (1.0-1.2 g/kg)-maintenance and preservation of lean body mass Fluid: 3131-3434 ml/d (1 ml/kcal-fluid balance) or per doctor Nutrition Diagnosis 1. Inadequate PO intake r/t reported poor appetite 2/2 reported GI distress AEB documented PO intake meeting <75% estimated calorie and protein needs. Intervention/RD recommendations 1. When medically able, continue/resume regular diet as ordered and as tolerated. Add Ensure Enlive TID with meals for inadequate PO intake to add an additional 1080 kcal and 60 g protein. Monitor/Evaluate Goal: PO intake at least 50% of estimated needs Monitor: PO intake, Labs, GI function, diet tolerance, weights, skin F/U in 2-3 days as high risk (3-3/2)
[2019-01-24 15:19] VITALS: BP 121/61
--- NOTE | 2019-01-24 16:57 | NUR ---
REPORT GIVEN TO ARELY DOMINGUEZ TO ASSUME ALL CARE UPON TRANSFERRING. ALL BELONGINGS SENT WITH PATIENT AND FAMILY.
--- NOTE | 2019-01-24 16:57 | NUR ---
PHYSICAL THERAPY AT BEDSIDE AND ASSESSED PATIENT. PATIENT ABLE TO AMBULATE WITH WALKER APPROX 3-4 STEPS. GAIT IS SLOW BUT STEADY. NO INCIDENCE OCCURRED. WILL CONTINUE TO MONITOR.
--- NOTE | 2019-01-24 17:14 | NUR ---
RECIEVED CALL FROM DR. PERLA. UPDATES PROVIDED. PATIENT REMAINS LETHARGIC. ORDERS TO TRANSFER PATIENT TO TELE IF BED IS NEEDED AND GET PATIENT OOB AND PHYSICAL THERAPY ORDERS. WILL FOLLOW AND CONTINUE TO MONITOR.
--- NOTE | 2019-01-24 18:42 | NUR ---
PATIENT NOTED TO HAVE SOMW WATERY BROWN STOOL. PATIENT CLEANED UP AND RECTAL TUBE CONNECTED TO SMITH BAG DRAINING TO GRAVITY. PARTIAL LINEN CHANGED AND NEW GOWN PROVIDED. PATIENT REFUSING DINNER TRAY, BUT REQUESTED ORANGE JUICE. ORANGE JUICE PROVIDED AND TOLERATED WELL. WILL CONTINUE TO MONITOR.
--- NOTE | 2019-01-24 19:06 | NUR ---
REPORT GIVEN TO ARELY ACUÑA TO ASSUME ALL CARES. ALL QUESTIONS AND CONCERNS ADDRESSED.
[2019-01-24 19:25] VITALS: BP 98/55
--- NOTE | 2019-01-24 19:25 | NUR ---
REC'D REPORT FROM CARLOS TO ASSUME CARE. PT IS A/O X1 (NAME) WITH EPISODES OF FORGETFULNESS AND CONFUSION; HX: DEMENTIA. PERRLA NOTED. NO ACUTE DISTRESS NOTED. NO SOB NOTED, RESPS E/U ON ROOM AIR. CHEST RISE EQUAL AND SYMMETRICAL. LUNG SOUNDS CTA. INSIDE TRUCKER IN PLACE SHOWING AFIB. DENIES ANY CP. ABD ROUND AND SOFT TO TOUCH. RECTAL TUBE IN PLACE DRAINING VIA GRAVITY LOOSE BROWN STOOL. INCONTINENT OF URINE, GOOD CHRISTOPH CARE PROVIDED. SKIN WARM DRY TO TOUCH. IV TO LFA INTACT AND PATENT, D5 1/2 NS + 20 MEQ K+ INFUSING @ 20ML/HR. PULSES PALPABLE X4. CAP REFILL < 3 SECS. BLE TRACE EDEMA NOTED. ALL NEEDS MET AT THIS TIME. CALL LIGHT WITHIN REACH. WILL CONTINUE TO MONITOR.
[2019-01-24 23:12] VITALS: BP 108/62
--- NOTE | 2019-01-25 01:00 | NUR ---
PT NOTED WITH SOILED GOWN AND LINENS. GOOD CHRISTOPH CARE PROVIDED. LINENS CHANGED. REPOSITIONED TO COMFORT.
[2019-01-25 04:15] VITALS: BP 132/86
--- NOTE | 2019-01-25 04:42 | NUR ---
LAB AT BEDSIDE.
[2019-01-25 05:05] LABS: BASOPHIL % 0.4 % (0-2)
--- NOTE | 2019-01-25 05:10 | NUR ---
GRV=0, TF INCREASED TO 50ML/HR
--- NOTE | 2019-01-25 05:11 | NUR ---
XRAY AT BEDSIDE
[2019-01-25 05:13] LABS: PLATELET COUNT 104 x10^3mcL (130-400); RED CELL DISTRIBUTION WIDTH 14.8 % (11.5-14.5)
[2019-01-25 05:22] LABS: CALCIUM 7.7 mg/dL (8.5-10.1); CARBON DIOXIDE 25.4 mmol/L (21-32); CHLORIDE SERUM 112 mmol/L (98-107); CREATININE SERUM 1.1 mg/dL (0.7-1.3); GLUCOSE SERUM 99 mg/dL (74-106); POTASSIUM SERUM 3.4 mmol/L (3.5-5.1); SODIUM SERUM 145 mmol/L (136-145)
--- NOTE | 2019-01-25 05:30 | NUR ---
PARTIAL BED BATH PROVIDED. LINENS CHANGED. REPOSITIONED TO COMFORT.
--- NOTE | 2019-01-25 06:49 | NUR ---
DR BRADFORD IN TO SEE PATIENT, UPDATED ON STATUS. MADE AWARE REGARDING PTS CARDIAC RHYTHM AFIB WITH HR 110-120 WITH NO CARDIAC MEDS ORDERED. VERBAL ORDER GIVEN FOR CARDIZEM 30MG PO Q8H. ORDER NOTED AND CARRIED OUT.
--- NOTE | 2019-01-25 06:50 | NUR ---
REPORTED ABNORMAL LABS TO DR BRADFORD, NO NEW ORDERS GIVEN.
--- NOTE | 2019-01-25 07:08 | NUR ---
REPORT GIVEN TO CARLOS MCGEE TO ASSUME CARE.
--- NOTE | 2019-01-25 07:30 | NUR ---
DR CARDONA AT BEDSIDE ASSESSING PATIENT. NO FURTHER ORDERS AT THIS TIME. WILL CONTINUE TO MONITOR.
--- NOTE | 2019-01-25 07:30 | NUR ---
PATIENT IS IN BED AWAKE. BED IS TO THE LOWEST POSITION. PATIENT IS BREATHING ADEQUATELY AND THERE ARE NO SIGNS OF RESPIRATORY DISTRESS. 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 ABDOMEN IS ROUND, SOFT/FIRM. RECTAL TUBE IS IN PLACE, WITH A FAIR AMOUNT OF DARK BROWN LOOSE STOOL. PATIENT HAS NOT YET URINATED. PER [employer] MANAGEMENT OFFICER PATIENT HAD URINATED. LEFT ANTERIOR ARM IV IS INTACT AND PATENT WITH D5 1/2 NS WITH 20 MEQ K INFUSING AT 20ML/HR. NO EDEMA NOTED TO THE EXTREMITIES. THERE IS BILATERAL UPPER ARM ECCHYMOSIS. PATIENT IS CALM AND COOPERATIVE. PRESSURE POINTS OFF LOADED WITH PILLOWS. CALL LIGHT IS WITHING REACH, WILL CONTINUE TO MONITOR.
[2019-01-25 07:58] VITALS: BP 126/78
--- NOTE | 2019-01-25 08:44 | NUR ---
PATIENT HAD A LARGE AMOUNT OF URINE ON GOWN. FULL LINEN CHANGE AND CLEAN. CONDOM CATHETER APPLIED, SECURE AND INTACT, PATIENT NOTED THAT THERE WAS NO PAIN.
[2019-01-25 11:43] VITALS: BP 101/51
--- NOTE | 2019-01-25 15:30 | NUR ---
DR. PERLA AT BEDSIDE ASSESSING PATIENT. NO FURTHER ORDERS AT THIS TIME. WILL CONTINUE TO MONITOR.
[2019-01-25 15:46] VITALS: BP 130/69
--- NOTE | 2019-01-25 17:05 | NUR ---
[facility] PHYSICAL THERAPIST AND ARELY GONZALEZ AT BEDSIDE. PATIENT SAT UP AT THE EDGE OF THE BED WITH MODERATE ASSIST. UPON SITTING, A SMALL ROUND OPEN LESION WAS DISCOVERED ON THE PATIENT'S BACK. PICTURE WAS TAKEN AND PLACED IN CHART. PATIENT DENIES ANY PAIN OR DISCOMFORT UPON PALPATION. PATIENT WAS UNABLE TO STAND UP AT THIS TIME AND PLACED BACK IN BED AND REPOSITIONED SUPINE OFFLOADED WITH PILLOWS AND HOB ELEVATED. WILL CONTINUE TO MONITOR.
--- NOTE | 2019-01-25 17:07 | NUR ---
REPORT GIVEN ARELY JONES. ALL QUESTIONS AND CONCERNS ADDRESSED.
--- NOTE | 2019-01-25 18:11 | NUR ---
PATIENTS READING GLASSES SENT WITH HIM ON TRANSFER.
--- NOTE | 2019-01-25 18:51 | NUR ---
RECEIVED PATIENT FROM ARELY ROSA. ON TELE #10. A/OX1 TO PERSON. CONDOM CATHETER INTACT, BAG BELOW PATIENT DRAINING. RECTAL TUBE INTACT, BELOW PATIENT, DRAINING 400 ML LIQUID GREEN STOOL. IV INFUSING D5 1/2 NS W 20 mEQ POTASSIUM. VITAL SIGNS STABLE. WILL ENDORSE TO ONCOMING NURSE.
[2019-01-25 19:01] VITALS: BP 105/64
--- NOTE | 2019-01-25 19:35 | NUR ---
RECEIVED PT AWAKE ALERT TO NAME AND BIRTHDATE ONLY.BREATHING EASY AND NON-LABORED.DENIES CHESTPAIN AT THIS TIME.BP 110/60 MMHG,HR 95.RECTAL TUBE TO BROWNISH COLORED LOOSE STOOL.CONDOM CATH TO YELLOW COLORED URINE.DENIES ANY PAIN AT THIS TIME.WILL CONTINUE TO MONITOR.
--- NOTE | 2019-01-26 04:49 | NUR ---
PT SLEPT WELL.BREATHING EASY AND NON-LABORED.DENIES ABDOMINLA PAIN.RECTAL TUBE DRAININGTO BROWN COLORED LOOSE STOOL.CONDOM CATH IN PLACED.ABDOMEN SOFT AND ROUND.ALL NEEDS ANTICIPATED AND MET.WILL CONTINUE TO MONITOR.
[2019-01-26 05:38] VITALS: BP 123/58
--- NOTE | 2019-01-26 06:22 | NUR ---
TOTAL 550 ML BROWN COLORED STOOL FROM RECTAL TUBE.CHANGED OPTIFOAM TO SACRAL-COCCYX AREA.SOME ERYTHEMA BUT REMAINS INTACT.
[2019-01-26 07:15] VITALS: BP 118/63
--- NOTE | 2019-01-26 08:00 | NUR ---
RECIEVED PATIENT SLEEPY BUT ARROUSABLE. SEEMS TO BE ORIENTED TO SELF AND HIS HOME BUT IS WITH POOR RECALL AND HAS SOME SIGNS OF DEMENTIA. PATIENT STATE SHE HAS HAS THIS CONDITION PRIOR BUT COULD NOT REMEMBER HOW HE DEALT WITH IT PRIOR OR WHAT IT IS CALLED. HE AHS ARECTAL TUBE AND A CONDOM CATH IN PLACE AND THE URINE IS WITH SEDIMENT AND THE RECTAL TUBE IS PUTTIN OUT MINIMAL AT THIS TIME. PATIENT TOOK HIS MEDICATIONS INCLUDING SENOCOT AND POTASSIUM WITHOUT PROBLEMS. HE HAS BEE ABLE TO FEED SELF WHEN COAXED. HIS VITALS AT HIS TIE AT 99.3, 83, 18, 123/58, 96% ON ROOM AIR. PATIMEGAN TA NTOED LABS OF THE CA AT 8.2, BUN AT 19.0, CHLORIDE OF 110, ALT AT 11, ALK PHOS AT 16 AND ALBUMINA T 3.0. CHEST X RAY IS NEGATIV EAND PATIE TIS LEGALLY BLIND AND HAS NOTE DCARIDOLMEGALLY. 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 HE HAS TRACE TO ONE PLUS EDEMA TO THE LOWER EXTREMTIES AND HAS A DISTENDED ABDOMEN WITH HYPOACTIVE BOWEL SOUNDS. PATIENT DENIE LILIANA AT THIS TIME. PATIENT HAS BEEN ON XARALTO AND HAS [id number] AFIB AND IS WITH AFIB AT ;THIS TIME. PATIENT ALSO HAS HTN, EARLY DEMENTIA, COLONIC DILATION. WILL CONTINUE TO MONITOR INDICATED.
[2019-01-26 09:54] LABS: BASOPHIL % 0.6 % (0-2)
[2019-01-26 09:56] LABS: PLATELET COUNT 104 x10^3mcL (130-400); RED CELL DISTRIBUTION WIDTH 14.6 % (11.5-14.5)
[2019-01-26 10:08] LABS: CALCIUM 7.6 mg/dL (8.5-10.1); CHLORIDE SERUM 109 mmol/L (98-107); CREATININE SERUM 1.1 mg/dL (0.7-1.3); GLUCOSE SERUM 158 mg/dL (74-106); POTASSIUM SERUM 3.5 mmol/L (3.5-5.1); SODIUM SERUM 142 mmol/L (136-145)
[2019-01-26 11:31] VITALS: BP 115/51
--- NOTE | 2019-01-26 12:44 | NUR ---
AT BEDSIDE AND ATTENTIVE WITH CARE.
--- NOTE | 2019-01-26 13:11 | NUR ---
Follow-Up Nutrition Assessment Dx: Abdominal pain, possible early toxic megacolon Labs: (01/26) Na 142, K 3.5, BG 158H, BUN 11, Cr 1.1 (trending down), WBC 5.2, H/H 11.5L/33L Meds: Amitiza, D5%, Dulcolax, KCL, Prostigmin, Senokot, Tylenol Diet: Cardiac (no pasta) PO Intake: (01/26) B: 25% (01/25) B/L/D: 50% Wt: 157# (71.2 kg) Skin: Scattered ecchymosis throughout extremities, blanchable redness to coccyx region Arsenio: 14 Edema: +1 to BLE GI: Last BM x 550 mL in flexiseal (01/26) with hypoactive bowel sounds Per provider progress notes, no acute events overnight with medical improvement noted, as pt. has less abdominal pain and distension. Transferred from ICU to telemetry unit on 01/25/19 per bed huddle discussion.Underwent abdominal KUB X-ray on 01/25/19 with similar findings of massive colonic distension with rectal tube in place per provider notes. Pt. noted with fair to poor appetite/PO intake and continued bouts of nausea without emesis. Requires encouragement and coaxing to consume meals per RN. Consuming Ensure Enlive with meals with good tolerance. Pt. requesting for grapes and bananas each meal; will update [employer] to best provide food preferences as requested. Estimated Nutritional Needs Based on actual body weight 71.2 kg: No changes since previous assessment Energy: 7695-7836 kcal/d (25-30 kcal/kg- geriatric maintenance) Protein: 71-85 g/d (1.0-1.2 g/kg)-maintenance and preservation of lean body mass Fluid: 1501-8064 ml/d (1 ml/kcal-fluid balance) or per doctor Nutrition Diagnosis 1. Inadequate PO intake r/t reported poor appetite 2/2 reported GI distress AEB documented PO intake meeting <75% estimated calorie and protein needs. (ongoing) Intervention/RD recommendations 1. Continue cardiac diet as ordered and as tolerated. Continue Ensure Enlive TID with meals for inadequate PO intake to add an additional 1080 kcal and 60 g protein. Monitor/Evaluate Previous goal: PO intake at least 50% of estimated needs (ongoing-not met) New goal: PO intake at least 50% of estimated needs Monitor: PO intake, Labs, GI function, diet tolerance, weights, skin F/U in 2-3 days as high risk (01/28-01/29)
--- NOTE | 2019-01-26 13:20 | NUR ---
FAMILY WANTS A SPECIFIC DIET AND IS ASKING TO SPEAK WITH THE DIETARY AND WANTS TO COMPLAIN. WHEN STAFF ORDERED THE SOUP REQUESTED THE FAMILY THEN STATES THEY JUST WANT CERTAIN CONSISTANCY AND NOT TO COMPLAIN. ADVISED THE FAMILY THAT THE DIETARY WILL TALK TO THEM AND SEE IF THEY CAN ASSIST WITH DIET NEEDS AND WISHES.
[2019-01-26 15:43] VITALS: BP 137/62
--- NOTE | 2019-01-26 17:56 | NUR ---
PATIENT IS IN A AGITATED STATE AND REFUSED THE ANDROID DEVELOPER TO CHANGE HIM AND STAFF IS TO REMOVE THE RECTAL TUBE WELL. HE DISMISSED STAFF AND WANTS HIS AND HE DOES TO WANT TO RETURN TO THE BOARD AND CARE. PATIENT HAS BEEN ANXIOUS AND WANTS TO GO TO WERE HE WANTS TO GO. THE FAMILY HAS DISCUSSED THE DISCHARGE PLAN WITH THE IT SECURITY CONSULTANT. PATIENT HAS BEEN CONFUSED AND VERY FORGETFUL AND DOES NOT REMEMBER HIS AND DAUGHTER HERE. HE DOES NOT REMEMBER EITHER THE ANDROID DEVELOPER OR THE RN CARING FOR HIM. HE DOES NOT REMEMBER DR PERLA SEEING HIM EITHER. WILL TRY TO GET BALTAZAR PATIET TO COOPERATE AND LET HIM CALM DOWN FOR NOW. PER DR PERLA THE PATIENT IS NOT ANY RESTRICTION OF DIET THE TEXTURE IS NOT GOING TO STOP THE PATIENT FROM HAVING THE COLONIC COLIC HAPPEN AGAIN.
--- NOTE | 2019-01-26 18:27 | NUR ---
PATIENT DOES NOT ANT STFF TO CHANGE HIME ALTHOUGH HE IS WET AND SINCE STAFF IS TO REMOVE THE RECTAL TUBE TOO THIS IS AN ISSUE. WILL ALLOW THE PATIENT TO CALM AND WILL TRY AGAIN.
--- NOTE | 2019-01-26 18:57 | NUR ---
WAS ABLE TO TALK THE PATIENT INTO ALLOWING STAFF TO CHANGE HIS BEDDING THE PATIENT HAS URINATED AND THE CONDOM CATH DID NOT STAY IN PLACE. THE IV IS DISCONTINUED AND THE RECTAL TUBE DR PERLA WANTED TO REMOVE BUT MU SNEED MADE A LOT ABOUT TAKIGN IT OUT AND WANTS NO ONE TO TOUCH IT. DR PERLA HAD ALSO DOES NOT NEED TO BE PUREE THE PATIENT WILL HAVE THE COLONIC ISSUES NO MATTER WHAT HE EATS THIS IS THE NATURE OF HIS ANATOMY. THE FAMILY DO NOT WANT SURGERY AND THE DOCTORS ARE CONCERNED THE PATIENT MAY NOT SURVIVE THE SURGERY IN ANY CASE PER THE FAMILY. PATIENT IS CONFUSED AT THIS TIME.
--- NOTE | 2019-01-26 19:15 | NUR ---
PT RECIEVED FROM THE DAY SHIFT RN. PT IS ALERT AND ORIENTED TO PERSON ONLY. PT IS AGITATED AND CONFUSED AT THIS TIME. PT RECTAL TUBE IN PLACE. PT BED ALARM PLACE, SAFETY AND COMFORT MEASURES MAINTAINED, BED IN LOWEST POSITION, CALL LIGHT WITHIN REACH, WILL CONTINUE TO MONITOR AT THIS TIME.
[2019-01-26 22:12] VITALS: BP 135/78
--- NOTE | 2019-01-26 23:49 | NUR ---
PT IS RESTING IN BED WITH EYES CLOSED AT THIS TIME. NO ACUTE DISTRESS NOTED, NO SOB NOTED, PT HAS BEEN CONFUSED AND ANXIOUS AT TIMES, BUT ABLE TO BE REORIENTED TO ENVIRONMENT. NO FACIAL GRIMACING NOTED. SAFETY AND COMFORT MEASURES MAINTAINED, BED IN LOWEST POSITION, CALL LIGHT WITHIN REACH.
--- NOTE | 2019-01-27 01:07 | NUR ---
PT IS RESTING WITH EYES CLOSED AT THIS TIME. NO ACUTE DISTRESS NOTED, NO FACIAL GRIMACING NOTED. SAFETY AND COMFORT MEASURES MAINTAINED, BED IN LOWEST POSITION, CALL LIGHT WITHIN REACH.
--- NOTE | 2019-01-27 03:07 | NUR ---
PT IS AWAKE AND CONFUSED AT THIS TIME. PT IS ALERT TO PERSON ONLY. PT IS AGITATED AND CONFUSED AND ASKING TO SEE HIS . THERAPEUTIC COMMUNICATION USED TO REORIENT PATIENT TO ENVIRONMENT. NO ACUTE DISTRESS NOTED, NO SOB NOTED. SAFETY AND COMFORT MEASURES MAINTAINED, BED IN LOWEST POSITION, CALL LIGHT WITHIN REACH.
--- NOTE | 2019-01-27 05:03 | NUR ---
PT SLEPT IN SHORT INTERVALS THROUGHOTU THE SHIFT, PT HAS BEEN ALERT AND ORIENTED TO PERSON ONLY. PT HAS HX OF DEMENTIA AND HAS BEEN CONFUSED DURING THE SHIFT. PT GETS AGITATED EASILY BUT IS ABLE TO BE REORIENTED TO ENVIRONMENT BRIEFLY. PT H NO COMPLAINTS OF PAIN AT THIS TIME. AT THIS TIME PT IS AWAKE AND ALERT AND IN BED. NO ACUTE DISTRESS NOTED, SAFETY AND COMFORT MEASURES MAINTAINED, BED IN LOWEST POSITION, CALL LIGHT WITHIN REACH, WILL ENDORSE CONTINUITY OF CARE TO THE ONCOMING RN.
[2019-01-27 05:59] VITALS: BP 129/57
[2019-01-27 06:27] LABS: BASOPHIL % 0.3 % (0-2)
[2019-01-27 06:30] LABS: PLATELET COUNT 103 x10^3mcL (130-400); RED CELL DISTRIBUTION WIDTH 14.8 % (11.5-14.5)
[2019-01-27 06:43] LABS: ALKALINE PHOSPHATASE 11 U/L (46-116); ALT/SGPT 19 U/L (16-63); AST/SGOT 28 U/L (15-37); BILIRUBIN DIRECT 0.15 mg/dL (0.0-0.2); BILIRUBIN TOTAL 0.4 mg/dL (0.20-1.00); CALCIUM 7.5 mg/dL (8.5-10.1); CARBON DIOXIDE 25.1 mmol/L (21-32); CHLORIDE SERUM 109 mmol/L (98-107); GLUCOSE SERUM 98 mg/dL (74-106); POTASSIUM SERUM 3.5 mmol/L (3.5-5.1); SODIUM SERUM 140 mmol/L (136-145)
[2019-01-27 06:55] LABS: ALBUMIN 2.4 g/dL (3.4-5.0); TOTAL PROTEIN, SERUM 5.3 g/dL (6.4-8.2)
--- NOTE | 2019-01-27 08:00 | NUR ---
RECEIVED PATIENT AWAKE BUT INTERMITTENT FORGETFULNESS AND CONFUSION NOTED. PATIENT WITH HISTORY. PATIENT HAS BEEN INCONTINENT OF URINE AND BOWEL AND HAS TOELRATE DIET OFFERED. PATIENT HAS NOTED LABS ARE AT PROTIEN AT 5.3, H AND H AT 111.0/32,. PATIENT HAS POTASSIU AT 3.4 AND CHLORIDE AT 112. PATIENT AND NOTE DRESIDUAL DISTENTION PER THE KUB AND HAS BEEN NOTED WITH COLONIC DILATION AND HAS BEEN A CHRONIC CONDITION. PATIENT HAS BEEN FROM [facility] AND HAS AT TIMES BEEN ADGITATED AND UNCOOPEATIVE. HE AT THIS TIME HAS BEEN COOPERTIVE WITH CARE. PATIENT HAS TRACE EDEMA TO THE LOWER EXT. AND THE RIGHT FOOT APPEARS TURNED IN AND WALKS WTIH A WALKER BUT HAS NOT PER THE FAMILY BEEN WALKING MUCH AND HAS BEEN MOSTLY IN THE WHEELCHAIR AT THE B AND C. PATIENT DENIES PAIN AT THIS TIME AND IV INTACT. LUNGS ARE DIMINISHED BUT CLEAR. TOOK ALL MEDICATIONS ORDERED. PATIENT IS INCONTINENT OF URINE AND BOWEL. THE STOOL IS LOOSE AND WATERY AND BOWEL SOUNDS ACTIVE.WILL CONTINUE TO MONITOR INDICATED.
[2019-01-27 08:51] VITALS: BP 131/56
--- NOTE | 2019-01-27 09:51 | NUR ---
OOB WITH PT AND TOLERATED WELL. HE IS MORE COOPERATIVE TODAY AND HAS BEEN WTIOUT THE RECTAL TUBE AND THE CONDOM CATH. HE HAS BEEN HEPLOCKED PER DR PERLA AND HAS TOLERATED DIET AND FLUIDS AND POTASSIUM WAS GIVEN AND TOLERATED WELL. YONY CONTINUE OT MONITR FOR SAFETY AND WILL CONTINUE TO REORIENT DUE TO DEMENTIA INDICATED.
--- NOTE | 2019-01-27 12:12 | NUR ---
PATIENT SEEN BY DR PERLA AND ORDER FOR MAGNESIUM CITATE RECEIVED. WILL GIVE INDICATED.
[2019-01-27 12:43] VITALS: BP 111/53
--- NOTE | 2019-01-27 13:23 | NUR ---
PATIENT EATING AT THIS TIME. WILL GIVE THE MAGNESIUM CITRATE POST LUNCH.
--- NOTE | 2019-01-27 15:40 | NUR ---
PATIENT HAD NO BM DISPITE STATING HE HAD TO HAVE ONE BIG TIME. THE ISLAND DRESSING APPLIED TO HET COCCYX SACRAL AREA AND PATIENT HAD BEDING CHANGED BY PAT THE СЕРГЕЙ PATIENT TOLERATED WELL. WILL CONTINUE THE MAGNESIUM CITRATE ODERED.
--- NOTE | 2019-01-27 16:42 | NUR ---
CONTINUED TO COAX THE MAGNESIUM CITRATE INTAKE. PATEINT THOUGH ONLY WILL TAKE A LITTLE SIP AT A TIME. NO BM YET NOTED. WILL CONTINUE TO MONITOR.
[2019-01-27 17:00] VITALS: BP 124/59
--- NOTE | 2019-01-27 17:54 | NUR ---
STILL TAKING MINIMAL SIPS OF THE POTASSIUM IN JUICE AND THE MAG CITRATE WITH SPRITE. NO STOOL YET NOTED.
--- NOTE | 2019-01-27 19:15 | NUR ---
PT RECIEVED FROM THE DAY SHIFT RN, PT IS ALERT AND ORIENTED TO PERSON ONLY. PT HAS HX OF DEMENTIA AND IS CONFUSED AT THIS MOMENT. REORIENTED PT TO ENVIRONMENT. NO ACUTE DISTRESS NOTED AT THIS TIME. NO SOB NOTED, PT HAS NO COMPLAINT OF PAIN AT THIS TIME. SAFETY AND COMFORT MEASURES MAINTAINED, BED IN LOWEST POSITION, CALL LIGHT WITHIN REACH, WILL CONTINUE TO MONITOR.
[2019-01-27 21:00] VITALS: BP 125/62
--- NOTE | 2019-01-27 23:12 | NUR ---
PT IS RESTING IN BED WITH EYES CLOSED AT THIS TIME. NO ACUTE DISTRESS NOTED. PT HAS BEEN CALM WITH CARE BUT CAN BE ANGRY AND AGITATED AT TIMES. PT IS ALERT AND ORIENTED TO PERSON ONLY. NO SOB NOTED. SAFETY AND COMFORT MEASURES MAINTAINED, BED IN LOWEST POSITION, CALL LIGHT WITHIN REACH. WILL CONTINUE TO MONITOR.
--- NOTE | 2019-01-28 01:14 | NUR ---
PT IS RESTING IN BED WITH EYES CLOSED AT THIS TIME. NO ACUTE DISTRESS NOTED, NO FACIAL GRIMACING NOTED, NO SOB NOTED. SAFETY AND COMFORT MEASURES MAINTAINED, CALL LIGHT WITHIN REACH, BED IN LOWEST POSITION. WILL CONTINUE TO MONITOR.
--- NOTE | 2019-01-28 03:04 | NUR ---
PT IS RESTING IN BED WITH EYES CLOSED AT THIS TIME. NO FACIAL GRIMACING NOTED, NO SOB, NO ACUTE DISTRESS NOTED. SAFETY AND COMOFRT MEASURES MAINTAINED, BED IN LOWEST POSITION, CALL LIGHT WITHIN REACH.
--- NOTE | 2019-01-28 04:29 | NUR ---
PT IS RESTING IN BED WITH EYES CLOSED. NO ACUTE DISTRESS NOTED, NO FACIAL GRIMACING, NO SOB, SAFETY AND COMFORT MEASURES MAINTAINED, BED IN LOWEST POSIITON, CALL LIGHT WITHIN REACH.
[2019-01-28 05:11] VITALS: BP 118/65
--- NOTE | 2019-01-28 06:00 | NUR ---
PT SLEPT IN LONG INTERVALS THROUGHOUT THE SHIFT, PT HAS BEEN ALERT AND ORIENTED TO PERSON ONLY. PT HAS SPELLS OF CONFUSION AND AGITATION, CAN BE ANGRY AT TIMES. NO ACUTE DISTRESS NOTED, NO SOB, NO COMPLAINT OF PAIN AT THIS TIME. SAFETY AND COMFORT MEASURES MAINTAINED, BED IN LOWEST POSITION, CALL LIGHT WITHIN REACH, WILL ENDORSE CONTINUITY OF CARE TO THE ONCOMING RN.
[2019-01-28 06:13] LABS: BASOPHIL % 0.4 % (0-2)
[2019-01-28 06:15] LABS: PLATELET COUNT 120 x10^3mcL (130-400); RED CELL DISTRIBUTION WIDTH 14.6 % (11.5-14.5)
[2019-01-28 06:41] LABS: ALKALINE PHOSPHATASE 11 U/L (46-116); ALT/SGPT 19 U/L (16-63); AST/SGOT 32 U/L (15-37); BILIRUBIN TOTAL 0.53 mg/dL (0.20-1.00); CALCIUM 7.7 mg/dL (8.5-10.1); CARBON DIOXIDE 25.8 mmol/L (21-32); CHLORIDE SERUM 107 mmol/L (98-107); CREATININE SERUM 0.9 mg/dL (0.7-1.3); GLUCOSE SERUM 95 mg/dL (74-106); POTASSIUM SERUM 3.6 mmol/L (3.5-5.1); SODIUM SERUM 140 mmol/L (136-145)
[2019-01-28 07:01] LABS: ALBUMIN 2.4 g/dL (3.4-5.0); TOTAL PROTEIN, SERUM 5.4 g/dL (6.4-8.2)
--- NOTE | 2019-01-28 08:00 | NUR ---
RECEIVED PATIENT AWAKE BUT CONFUSED AND ATTEMPTING TO REMOVE ALL CLOTHING AND TO GET AND GO SOMEWHERE BUT HE SEEMS TO HAVE FORGOTTEN HE IS IN THE HOSPITAL AT THIS TIME. HE HAS BEEN ASKING NOW FOT THE AND ASSISTANCE FOR TOILETING ON AND OFF. HE HAS BEEN GIVEN HIS MEDICATINS AND TOOK WITH THE ORANGE JUICE AND THE POTASSIUM IN THE ORANGE JUICE. HE HAS NOTED MOLES OF VARYING COLOR INCLUDING SOME ALMOST BLACK IN COLOR TO THE FACE AND PATIENT HAS A LESION TO THE BACK AND SOME REDNESS TO THE SCACRAL COCCYX AREA AND OPTIFORM DRESSING IN PLACE. HE HAS BEEN NOTED TO SCOOT AND BE RESTLESS AT TIMES. HE CAN FEED HIMSELF BUT PREFERS TO BE FED AND HAS BEEN WITH NO COMPLAINTS OF ABDOMINAL PAIN BUT HAS NOTED DISTENTION AND RIDID ABDOMEN. WITH HISTORY OF COLONIC PSUEDOOBSTRUCTION IN THE PAST AND HAD A COLONOCOPY WITH DR PERLA TO RELEASE THE DISTENTION. HE RECEIVED MAG CITRATE WHICH HE TOOK ONLY A LITTLE AT A TIME DISMISSING THAT HE WILL TAKE LATER LAST NIGHT. HE HAS HAD A SMALL BM THAT WAS WATERY IN CONSISTANCY. HE HAS NOT HAD ANY VOMITING BUT HAS PERIODIC PHLEM HE SPITS OUT IN A [place] OR PAPERTOWEL. IV TO HEPLOCK AND PATIENT HAS BEEN WITH VITALS AT THIS TIME AT 97.7, 87, 20, 118/65, 97%. NOTED LABS AT ALK PHOS AT 11, CA AT 7.7, ALBUMIN AT 2.4, CHLOIDE AT 109. PATIENT HAS BEEN AFIB ON THE WITH HISTORY OF AFIB AND ON XARALTO ORDERED. PATIENT IS ALLERGIC TO PCN AND KEFLEX.
[2019-01-28 10:56] VITALS: BP 118/53
--- NOTE | 2019-01-28 11:29 | NUR ---
SEEN BY DR PERLA AND PATIENT IS PROGRESSIVELY MORE CONFUSED AND DISORIENTED. HE HAS DELUSIONS WELL HALLUCINATIONS. HE WANTS TO KNOW WHAT WILL BE DONE WITH HIS WOUND. DR PERLA IS NOT ADDRESSING THE WOUND BUT THE BOWEL. PATIENT HAS BEEN OBSESSING ABOUT HIS WOUND THAT IS REDNESS TO THE RECTAL SACRAL SITE. HE DOES NOT EVEN COMPLAIN ABOUT THE LESION TO HIS BACK. WILL CONTINUE TO REORIENT NEEDED. DR PERLA WANTS THE PATIENT TO MOVE MORE. THE PATIENT THOUGH IS VERY UNSTEADY AND WITH A TURNED IN FOOT AND HAS TO HAVE MODERATE TO MAX ASSIST. PATIENT IS IMPULSIVE TOO AND THIS LEADS TO EVEN FURHTER SAFETY ISSUES. WILL ADVISE THE DESKTOP ANALYST STAFF TO GET UP TO COMODE OR RESTROOM BUT PATIEN TMUST BE MONITORED CONSTANTLY FOR SAFETY.
--- NOTE | 2019-01-28 12:58 | NUR ---
Follow-up Nutrition Assessment- Dx: abdominal pain, possible early toxic megacolon Labs: (01/28/19) Na 140, K 3.6, Glu 95, BUN 9.0, Cr 0.9, Alb 2.7 L, H/H 11.3/33 Meds: amitiza, D5%, dulcolax, KCl, prostigmin, senokot, tylenol Diet: cardiac (no pasta) PO Intakes: (01/27) L: 60%, B: 75%; (01/26) D: Pt refused to eat and refuses assistance to eat; (01/25) D: 50% Weights: 157#/71.2 kg Skin: scattered ecchymosis throughout extremities, blanchable redness to coccyx region Edema: +1 edema to BLE Last BM: 1 x 01/28/19; rectal tube removed during AM vitals Pt seen asleep in bed, unable to awaken by name. Ensure Live ONS was untouched. Per nursing documentation, Pt was seen by Dr. Houston this morning; Pt is progressively more confused and disoriented. Per Physician Progress Note (01/27), plan to continue to neostigmine, continue to recommendations per GI/surgery. Per previous RDN note, Pt reported poor appetite/PO intake and continue bouts nausea without emesis, Pt encouragement and coaxing to consuming meals. Estimated Nutritional Needs unchanged from prior assessment: Energy: 5635-9206 kcal/d (25-30 kcal/kg - geriatric management) Protein: 71-85 gm/d (1-1.2 gm/kg - maintain and preservation of lean body mass) Fluid: 5553-6582 mL/d (1 mL/kcal - fluid balance) or per doctor Nutrition Diagnosis 1. Inadequate PO intake related to reported poor appetite 2/2 reported GI distress as evidenced by documented PO intakes meeting < 75% estimated calorie and protein needs. Intervention/RDN Recommendation(s): 1. Continue cardiac diet as ordered and as tolerated. 2. Continue Ensure Enlive TID with meal for inadequate PO intake to add an additional 1080 kcal, 60 gm protein. Monitor/Evaluate Goal: Previous goal: Intake via PO intakes to meet at least 50% of estimated needs with acceptable tolerance within 2-3 days. (ongoing-not met) New goal: Intake via PO intake to meet at least 50% of estimated needs with acceptable tolerance within 2-3 days. Monitor: PO intakes and/or nutrition support tolerance, Labs, GI function, Skin integrity, Weights. F/U in 2-3 days as high risk (01/28-01/29)
[2019-01-28 13:16] VITALS: BP 115/57
--- NOTE | 2019-01-28 13:46 | NUR ---
PATIENT AT BEDSIDE. PATIENT IS MORE RELAXED NOW WITH HER HERE. PATIENT TOLERATED TNA DFAMILY INFORMED THAT DR PERLA WANTS PATIENT TO BE MORE MOBILE. HE HAS BEEN IN A CHAIR AT THE BOARD AND CARE RATHER AMBULATING PER THE FAMILY HE HAS ALMOST STOPPED WALKING. PER DR PERLA THE PATIENT NEED TO MOVE TO HELP HIS MOTILITY OF THE BOWELS WELL CIRCULTION AND APPETITE IS TO INCLUDE PROTIEN AND NUTRIENTS IN A REGULAR DIET. HE DOES NOT HAVE ETO EAT SOFTEN FOODS ONLY.
--- NOTE | 2019-01-28 16:05 | NUR ---
PATIENT HAD AND DAUGHTER AT BEDSIDE AND DAUGHTER HAS BEEN A BIT ANIOUS AND AT TIMES SHE NEEDS TO HAVE STAF AT BEDSIDE AND THERE IS NOTHER THE PATIETN NEEDS BUT SHE FEELS IT IS IMPORTANT TO THE CRM SYSTEM ADMINISTRATOR OR NURSE TO BE THERE. PATIENT WIN BEEN BATHED AND FED ADN CHANGED SEVERAL TIMES AND MEDICATIONS GIVEN ORDERED. HE DENIES PAINA DN HAD ONLY REQUESTED HE WANT TO GO HOME AND TO SEE HIS . NO DISRESS AT THIS TIME.
[2019-01-28 17:29] VITALS: BP 120/62
--- NOTE | 2019-01-28 18:52 | NUR ---
PATIENT PATIENT IS CALM AND STILL CONFUSED BUT HAS NOT BEEN AGITATED OR RESISTANT TO CARE. WILL ENDORSE TO THE NEXT SHIFT.
--- NOTE | 2019-01-28 19:25 | NUR ---
PT RECIEVED FROM THE DAY SHIFT RN. PT IS RESTING IN BED WITH EYES CLOSED AT THIS TIME. NO ACUTE DISTRESS NOTED.
[2019-01-28 20:59] VITALS: BP 123/60
--- NOTE | 2019-01-28 22:55 | NUR ---
PT IS RESTING IN BED WITH EYES CLOSED AT THIS TIME. NO ACUTE DISTRESS NOTED, PT HAS BEEN ALERT AND ORIENTED TO PERSON ONLY. PT HAS AGITATION AND ANGER AT TIMES. PT IS CALM AND COOPERATIVE WITH CARE AT THIS TIME. SAFETY AND COMFORT MEASURES MAINTAINED, BED IN LOWEST POSITION, CALL LIGHT WITHIN REACH.
--- NOTE | 2019-01-29 01:39 | NUR ---
PT IS RESTING IN BED WITH EYES CLOSED AT THIS TIME. NO ACUTE DISTRESS NOTED, PT HAS BEEN ALERT AND ORIENTED TO PERSON ONLY. PT HAS BEEN CALM AND COOPERATIVE WITH CARE. PT DOES NEED TO BE REORIENTED TO ENVIRONMENT. SAFETY AND COMFORT MEASURES MAINTAINED, BED IN LOWEST POSITION, CALL LIGHT WITHIN REACH.
--- NOTE | 2019-01-29 02:38 | NUR ---
PT IS RESTING IN BED WITH EYES CLOSED AT THIS TIME. NO ACUTE DISTRESS NOTED, SAFETY AND COMFORT MEASURES MAINTAINED, BED IN LOWEST POSITION, CALL LIGHT WITHIN REACH, WILL CONTINUE TO MONITOR AT THIS TIME.
--- NOTE | 2019-01-29 05:01 | NUR ---
PT HAS SLEPT IN LONG INTERVALS THROUGHOUT THE SHIFT. PT HAS BEEN ALERT AND ORIENTED TO PERSON ONLY, NO ACUTE DISTRESS WAS NOTED, PT HAS BEEN CALM AND COOPERATIVE WITH CARE. PT HAS HX OF DEMENTIA AND CONFUSION, PT HAS NO COMPLAINT OF PAIN AT THIS TIME. SAFETY AND COMFORT MEASURES MAINTAINED, BED IN LOWEST POSITION, CALL LIGHT WITHIN REACH, WILL ENDORSE CONTINUITY OF CARE TO THE ONCOMING RN.
[2019-01-29 05:13] VITALS: BP 117/55
--- NOTE | 2019-01-29 07:30 | NUR ---
RECEIVED PT RESTING IN BED. NO ACUTE DISTRESS. SLEEPING BUT EASILY AROUSABLE. RESP EVEN AND UNLABORED ON RA. NO PAIN NOTED. FALL PRECAUTIONS IN PLACE. IV TO LFA, NO REDNESS OR SWELLING NOTED. BED IN LOW POSITION, CALL LIGHT WITHIN REACH. WILL CONTINUE TO MONITOR.
[2019-01-29 08:04] LABS: CALCIUM 7.9 mg/dL (8.5-10.1); CARBON DIOXIDE 25.1 mmol/L (21-32); CHLORIDE SERUM 105 mmol/L (98-107); GLUCOSE SERUM 97 mg/dL (74-106); POTASSIUM SERUM 4.2 mmol/L (3.5-5.1); SODIUM SERUM 138 mmol/L (136-145)
[2019-01-29 08:10] VITALS: BP 121/65
[2019-01-29] MEDS ORDERED: DUL10S RC (12:25)
[2019-01-29] MEDS ORDERED: MAGL PO (12:25)
[2019-01-29] MEDS ORDERED: MEGESTROL AC40 MG/ML PO (12:25)
[2019-01-29] MEDS ORDERED: SEN PO (12:25)
[2019-01-29 12:30] VITALS: BP 92/47
--- NOTE | 2019-01-29 12:43 | NUR ---
PT EATING LUNCH AT THIS TIME. POOR APPETITE AND PICKY WITH FOOD. DR. PERLA AWARE. NO ACUTE DISTRESS. HOB ELEVATED. CALL LIGHT WITHIN REACH. WILL CONTINUE TO MONITOR.
--- NOTE | 2019-01-29 15:15 | NUR ---
PT'S AND DAUGHTER AT BEDSIDE. UPDATED WITH PLAN OF CARE.
[2019-01-29 17:41] VITALS: BP 120/68
--- NOTE | 2019-01-29 18:17 | NUR ---
PT HAD SMALL LOOSE STOOL. CLEANED AND REPOSITIONED. NEW OPTIFOAM APPLIED TO SACRUM. HOB ELEVATED. PT EATING DINNER AT THIS TIME. WILL CONTINUE TO MONITOR.
--- NOTE | 2019-01-29 19:00 | NUR ---
REDNESS NOTED TO LFA IV SITE, IV DC'D WITH CATHETER INTACT. NEW IV STARTED ON RFA 22G, FLUSHED WITH GOOD BLOOD RETURN. WILL ENDORSE TO ONCOMING SHIFT.
--- NOTE | 2019-01-29 19:54 | NUR ---
PT SEEN, ASLEEP BUT EASILY AROUSABLE, ALERT AND ORIENTED X 1 WITH HX OF DEMENTIA, VERY FORGETFUL, BREATHING EVEN AND UNLABORED, LUNG SOUNDS DIMINISHED, ON ROOM AIR WITH NO RESP DISTRESS NOTED, ON TELE#10 A-FIB, NO S&S OF CHEST PAIN, SL TO RFA, PULSES PALPABLE, EDEMA NOTED TO BLE, GENERALIZED WEAKNESS, MINIMAL ASSIST TO REPOSITION, MIN FWW WITH PT, LESION TO BACK, INCONTINENT, WOUND TO SACRAL/COCCYX AREA, ERYTHEMA, ABD SOFT WITH ACTIVE BS, NO BM AT THIS TIME, LAST BM TODAY LOOSE STOOL, SIDE RAILS UP, BED ALARM ON, NO DISTRESS NOTED, WILL KEEP TO MONITOR.
--- NOTE | 2019-01-29 20:00 | NUR ---
PT SEEN, ASLEEP BUT EASILY AROUSABLE, ALERT AND ORIENTED X 1 WITH HX OF DEMENTIA, VERY FORGETFUL, BREATHING EVEN AND UNLABORED, LUNG SOUNDS DIMINISHED, ON ROOM AIR WITH NO RESP DISTRESS NOTED, ON TELE#10 A-FIB, NO S&S OF CHEST PAIN, SL TO RFA, PULSES PALPABLE, EDEMA NOTED TO BLE, GENERALIZED WEAKNESS, MINIMAL ASSIST TO REPOSITION, MIN FWW WITH PT, LESION TO BACK, INCONTINENT, WOUND TO SACRAL/COCCYX AREA, ERYTHEMA, ABD FIRM AND DISTENDED WITH ACTIVE BS, NO BM AT THIS TIME, LAST BM TODAY LOOSE STOOL, SIDE RAILS UP, BED ALARM ON, NO DISTRESS NOTED, WILL KEEP TO MONITOR.
[2019-01-29 21:24] VITALS: BP 105/57
--- NOTE | 2019-01-29 22:06 | NUR ---
PT HAD LARGE WATERY AND LOOSE STOOL, WOUND CLEANED ON SACRAL AND COCCYX AREA, NEW OPTIFORM APPLIED, TOTAL BED BATH GIVEN, LINENS CHANGED.
--- NOTE | 2019-01-30 05:54 | NUR ---
PT ASLEEP BUT EASILY AROUSABLE, SLEPT ON AND OFF WHILE NIGHT, PT HAD TWO WATERY STOOL DURING THE SHIFT, ON TELE#10 A-FIB, ABD ROUND, FIRM AND DISTENDED, SIDE RAILS UP, BED ALARM ON, NO DISTRESS NOTED, WILL KEEP TO MONITOR.
[2019-01-30 06:20] VITALS: BP 121/70
[2019-01-30 09:45] VITALS: BP 110/62
--- NOTE | 2019-01-30 11:43 | NUR ---
DR. BOLTON AT BEDSIDE TO EVALUATE PT. MADE AWARE OF PT'S BREATH SOUNDS AND PRODUCTIVE COUGH. NO NEW ORDERS AT THIS TIME. PT ALSO PLACED ON AIR MATTRESS. WILL CONTINUE TO MONITOR.
[2019-01-30 13:29] VITALS: BP 180/76
[2019-01-30 13:30] VITALS: BP 104/53
--- NOTE | 2019-01-30 13:39 | NUR ---
RECTAL TUBE INSERTED ORDERED. DRAINING TO GRAVITY. PT'S ABDOMEN NOW LESS DISTENDED AND SOFTER. WILL CONTINUE TO MONITOR.
--- NOTE | 2019-01-30 13:51 | NUR ---
CALLED AND SPOKE TO OF RESULT AFTER PLACING THE RECTAL TUBE, PT ABDOMEN FROM BEING DISTENDED HAD STARTED PASSING GAS SOON RECTAL TUBE WAS PLACED, CONNECTED THE RECTAL TUBE VIA BEDSIDE BAG ORDERED. SECURED WITH TAPE. PT HAD EXPRESSED A LOT OF RELIEF AFTER PLACING THE RECTAL TUBE. HANNAH RN ASSIGNED TO THIS PT MADE AWARE THAT I SPOKE TO AFTER TUBE WAS PLACED.
--- NOTE | 2019-01-30 14:15 | NUR ---
Follow-Up Nutrition Assessment Dx: Abdominal pain, possible early toxic megacolon Labs: (01/29) Na 138, K 4.2, BG 97, BUN 11, Cr 1.0 (trending down), WBC 5.7, H/H 11.3L/33L Meds: Amitiza, Cardizem, Citrate of Magnesia, Dulcolax, KCL, Megace, Mylanta, Tylenol , Xarelto Diet: Regular PO Intake: (01/30) B: 20% (01/29) B/L: 25% D: refused (01/28) B: 75% Wt: 157# (71.2 kg) Skin: Scattered ecchymosis throughout extremities, blanchable redness to coccyx region Arsenio: 15 Edema: trace to BLE GI: Last BM x 2 watery stools (01/30) Per provider progress notes, no acute events overnight with medical improvement noted, as pt. has less abdominal pain and distension. Potential plans in place for transferring to long-term care facility for further management. Pt. noted with fair to poor appetite/PO intake and requires encouragement and coaxing to consume meals per RN. Does not consume Ensure Enlive at all meals; intake depending on pt.'s willingness to drink supplement. Offered other forms of ONS including Ensure Pudding; pt. agreed to trying new ONS. Estimated Nutritional Needs Based on actual body weight 71.2 kg: No changes since previous assessment Energy: 8423-6864 kcal/d (25-30 kcal/kg- geriatric maintenance) Protein: 71-85 g/d (1.0-1.2 g/kg)-maintenance and preservation of lean body mass Fluid: 1414-3320 ml/d (1 ml/kcal-fluid balance) or per doctor Nutrition Diagnosis 1. Inadequate PO intake r/t reported poor appetite 2/2 reported GI distress AEB documented PO intake meeting <75% estimated calorie and protein needs. (ongoing) Intervention/RD recommendations 1. Continue cardiac diet as ordered and as tolerated. Change supplement to Ensure pudding TID with meals for inadequate PO intake to add an additional 510 kcal and 12 g protein. FP changed to reflect pt. preferences. Monitor/Evaluate Previous goal: PO intake at least 50% of estimated needs (ongoing-not met) New goal: PO intake at least 50% of estimated needs Monitor: PO intake, Labs, GI function, diet tolerance, weights, skin F/U in 2-3 days as high risk (02/01-02/02)
--- NOTE | 2019-01-30 15:11 | NUR ---
PHYSICAL THERAPY DAILY NOTES CO-SIGN All documentation done by the Senior Technical Business Analyst for 01/30/19 has been reviewed. I agree with the documentation. Reviewed/Co-Signed by: Renetta Pickering PT Documentation Done by:AUGUSTINA MENESES
[2019-01-30 17:03] VITALS: BP 122/59
--- NOTE | 2019-01-30 17:07 | NUR ---
PT RESTING IN BED WITH EYES CLOSED BUT AROUSABLE. RESP EVEN AND UNLABORED ON RA. RECTAL TUBE IN PLACE, NO OUTPUT NOTED AT THIS TIME. IVF TO RFA, NO REDNESS OR SWELLING TO IV SITE. ON AIR MATTRESS. FALL PRECAUTIONS. CALL LIGHT WITHIN REACH. WILL CONTINUE TO MONITOR.
--- NOTE | 2019-01-30 18:06 | NUR ---
PT EATING DINNER. WITH GOOD APPETITE, FINISHED 70% AT THIS TIME. HOB ELEVATED. ASPIRATION PRECAUTIONS IN PLACE. WILL CONTINUE TO MONITOR.
--- NOTE | 2019-01-30 18:52 | NUR ---
PT HAD EPISODE OF URINARY INCONTINENCE, CLEANED AND REPOSITIONED. NEW LINEN AND GOWN PROVIDED. RECTAL TUBE BAG WITH ABOUT 150 ML WATERY BROWN STOOL. HOB SLIGHTLY ELEVATED. FALL PRECAUTIONS IN PLACE. WILL ENDORSE TO ONCOMING SHIFT.
--- NOTE | 2019-01-30 19:15 | NUR ---
RECEIVED PT IN BED RESTING.AAOX1.AUDIBLE CRACKLES AND EXP WHEEZES NOTED. NO SOB NOTED.RECTAL TUBE IN PLACED ATTACHED TO DRAINING BAG.OPTIFOAM TO SACRAL AREA.SALINE LOCK TO RFA PATENT AND INTACT. BED IN LOWEST POSITION,CALL LIGHT WITHIN REACH. WILL CONTINUE TO MONITOR.
[2019-01-30 20:16] VITALS: BP 128/79
--- NOTE | 2019-01-31 05:12 | NUR ---
PT APPEARS TO BE SLEEPING.NO ACUTE RESPIRATORY DISTRESS NOTED.NO C/O PAIN AT THIS TIME.REPOSITIONED PT.APPLIED OPTIFOAM AND Z GUARD TO ACRAL AREA.BED IN LOWEST POSITION,CALL LIGHT WITHIN REACH. WILL CONTINUE TO MONITOR.
[2019-01-31 05:27] VITALS: BP 107/62
[2019-01-31 06:10] LABS: BASOPHIL % 0.3 % (0-2); PLATELET COUNT 134 x10^3mcL (130-400)
[2019-01-31 06:27] LABS: ALKALINE PHOSPHATASE 25 U/L (46-116); ALT/SGPT 22 U/L (16-63); AST/SGOT 27 U/L (15-37); BILIRUBIN DIRECT 0.09 mg/dL (0.0-0.2); BILIRUBIN TOTAL 0.2 mg/dL (0.20-1.00); CALCIUM 7.9 mg/dL (8.5-10.1); CARBON DIOXIDE 28.2 mmol/L (21-32); CHLORIDE SERUM 106 mmol/L (98-107); CREATININE SERUM 1.2 mg/dL (0.7-1.3); GLUCOSE SERUM 129 mg/dL (74-106); POTASSIUM SERUM 4.5 mmol/L (3.5-5.1); SODIUM SERUM 140 mmol/L (136-145)
[2019-01-31 06:33] LABS: RED CELL DISTRIBUTION WIDTH 14.8 % (11.5-14.5)
[2019-01-31 06:58] LABS: ALBUMIN 2.3 g/dL (3.4-5.0); TOTAL PROTEIN, SERUM 5.4 g/dL (6.4-8.2)
--- NOTE | 2019-01-31 07:00 | NUR ---
RECEIVED REPORT FROM HUMAN RESOURCES BENEFITS ASSISTANT NURSE AT THIS TIME. PATIENT RESTING COMFORTABLY IN BED. NO APPARENT DISTRESS OR DISCOMFORT NOTED. BREATHING EVEN AND UNLABORED. NO RESPIRATORY DISTRESS NOTED. PATIENT DENIES CHEST PAIN AT THIS TIME. RECTAL TUBE IN PLACE AND DRAINING TO GRAVITY. IV PATENT AND INTACT. ALL QUESTIONS AND CONCERNS ADDRESSED. ALL NEEDS ATTENDED TO. WILL CONTINUE TO MONITOR
--- NOTE | 2019-01-31 07:30 | NUR ---
CARE ENDORSED TO DAY NURSE
--- NOTE | 2019-01-31 08:56 | NUR ---
SPOKE TO DR BOLTON REGARDING POTASSIUM MEDICATION. REPORTED TO DR BOLTON POTASSIUM 4.5. PER DR BOLTON, DINORA TO HOLD POTASSIUM THIS AM (SEE EMAR). ALL NEEDS ATTENDED TO. WILL CONTINUE TO MONITOR
[2019-01-31 09:30] VITALS: BP 111/50
[2019-01-31 12:28] VITALS: BP 119/55
--- NOTE | 2019-01-31 13:00 | NUR ---
PATIENT SITTING UP IN BED EATING LUNCH AT THIS TIME. PATIENT TOLERATING REGULAR DIET WELL. NO APPARENT DISTRESS NOTED. RECTAL TUBE DRAINING TO GRAVITY. ALL NEEDS ATTENDED TO. WILL CONTINUE TO MONITOR
[2019-01-31 17:26] VITALS: BP 120/66
--- NOTE | 2019-01-31 17:58 | NUR ---
PATIENT SITTING UP IN BED EATING DINNER AT THIS TIME. PATIENT TOLERATING DIET WELL. NO APPARENT DISTRESS OR DISCOMFORT NOTED. ALL NEEDS ATTENDED TO. WILL CONTINUE TO MONITOR
--- NOTE | 2019-01-31 18:51 | NUR ---
PATIENT RESTING COMFORTABLY IN BED AT THIS TIME. NO APPARENT DISTRESS OR DISCOMFORT NOTED. IV PATENT AND INTACT. RECTAL TUBE IN PLACE DRAINING TO GRAVITY. ALL QUESTIONS AND CONCERNS ADDRESSED. ALL NEEDS ATTENDED TO. SAFETY PRECAUTIONS MAINTAINED. WILL ENDORSE ALL CARE TO SEISMOGRAPH CHIEF NURSE
--- NOTE | 2019-01-31 19:20 | NUR ---
REPORT RECIEVED FROM DAY SHIFT RN. PATIENT WAS SEEN AND IS RESTING COMFOFTABLY IN BED. NO COMPLAINTS VOICED AT THIS TIME. NO C/O OF PAIN. DENIES CHEST PAIN. ON ROOM AIR. NO SOB OR DISTRESS NOTED. BREATHING IS EVEN AND UNLABORED. IV TO THE RFA. SALINE LOCK. PATENT AND INTACT. NO REDNESS OR SWELLING NOTED. RECTAL TUBE IN PLACE. CONFUSED. A/OX1 TO SELF. CALL LIGHT IS WITHIN REACH. INSTRUCTED PATIENT TO CALL FOR ASSISTANCE. COMFORT AND SAFETY MEASURES MAINTAINED. BED IS LOCKED AND IN LOWEST POSITION. SIDE RAILS UP X2. WILL CONTINUE TO MONITOR.
[2019-01-31 20:43] VITALS: BP 124/63
--- NOTE | 2019-02-01 03:26 | NUR ---
PATIENT IS RESTING IN BED WITH EYES CLOSED. ON ROOM AIR. NO SOB OR DISTRESS NOTED. NO FACIAL GRIAMCING OR SIGNS OF PAIN. CALL LIGHT IS WITHIN REACH. WILL CONTINUE TO MONITOR.
[2019-02-01 05:34] VITALS: BP 125/90
--- NOTE | 2019-02-01 05:34 | NUR ---
PATIENT SLEPT IN INTERVALS THROUGHOUT THE NIGHT. ON ROOM AIR. BREATHING EVEN AND UNLABORED. NO SOB OR DISTRESS NOTED. NO ACUTE CHANGES NOTED. A/O X1. CONFUSED. FREQUENT REORIENTATION IS NEEDED AND USED. NO C/O OF PAIN THROUGHOUT THE NIGHT. DENIES CHEST PAIN. RECTAL TUBE IN PLACE. CALL LIGHT IS WITHIN REACH. COMFORT AND SAFETY MEASURES MAINTAINED. BED IS LOCKED AND IN THE LOWEST POSITION. SIDE RAILS UP X2. WILL ENDORSE CARE TO DAY SHIFT RN.
--- NOTE | 2019-02-01 07:05 | NUR ---
PATIENT RESTING COMFORTABLY IN BED. NO APPARENT DISTRESS OR DISCOMFORT NOTED. BREATHING EVEN AND UNLABORED. NO RESPIRATORY DISTRESS NOTED. NO INDICATION OF CHEST PAIN AT THIS TIME. IV PATENT AND INTACT WITH NO REDNESS OR SWELLING. RECTAL TUBE IN PLACE DRAINING TO GRAVITY. ALL QUESTIONS AND CONCERNS ADDRESSED. ALL NEEDS ATTENDED TO
[2019-02-01 08:48] VITALS: BP 118/70
--- NOTE | 2019-02-01 08:50 | NUR ---
Follow-Up Nutrition Assessment Dx: Abdominal pain, possible early toxic megacolon Labs: (02/01) Na 140, K 4.5, BG 129H, BUN 17, Cr 1.2, WBC 6.0, H/H 10.8L/32L Meds: Citrate of Magnesia, Dulcolax, KCL, Megace, Mylanta, Tylenol , Xarelto Diet: Regular PO Intake: (01/31) B/L: 100% D: 60% (01/30) B: 20% D: 80% D: 70% Wt: 69.2 kg Skin: Scattered ecchymosis throughout extremities, non-blanchable redness to coccyx region Arsenio: 16 Edema: trace to BLE GI: Last BM x with flexiseal in place draining loose stools (02/01) Per provider progress notes, no acute events overnight with medical improvement noted, as pt. has less abdominal pain and distension. Potential plans in place for transferring to long-term care facility for further management. Pt. noted with improved appetite but continues to require encouragement and coaxing to consume meals per RN and family member at bedside. Pt. on appetite stimulant (Megace), which may be a contributing factor for improved appetite/PO intake. Changed ONS to Ensure pudding from previous assessment, and pt. has been eating 50-100% with meals with good tolerance. Estimated Nutritional Needs Based on actual body weight 71.2 kg: No changes since previous assessment Energy: 2261-9706 kcal/d (25-30 kcal/kg- geriatric maintenance) Protein: 71-85 g/d (1.0-1.2 g/kg)-maintenance and preservation of lean body mass Fluid: 1517-7330 ml/d (1 ml/kcal-fluid balance) or per doctor Nutrition Diagnosis 1. Inadequate PO intake r/t reported poor appetite 2/2 reported GI distress AEB documented PO intake meeting <75% estimated calorie and protein needs. (Improved) Intervention/RD recommendations 1. Continue cardiac diet as ordered and as tolerated. Continue providing supplement Ensure pudding TID with meals for inadequate PO intake to add an additional 510 kcal and 12 g protein. 2. Update food preferences as requested by pt./family members to encourage increase in PO intake. Monitor/Evaluate Previous goal: PO intake at least 50% of estimated needs (met) New goal: PO intake at least 75% of estimated needs Monitor: PO intake, Labs, GI function, diet tolerance, weights, skin F/U in 3-5 days as moderate risk (02/04-02/06)
--- NOTE | 2019-02-01 09:13 | NUR ---
MORNING MEDICATIONS ADMINISTERED. PATIENT TOLERATED MEDICATIONS WELL. NO ADVERSE EFFECTS NOTED. ALL NEEDS ATTENDED TO. WILL CONTINUE TO MONITOR
--- NOTE | 2019-02-01 10:11 | NUR ---
RECTAL TUBE REMOVED AT THIS TIME. PATIENT TOLERATED WELL. NO APPARENT DISTRESS OR DISCOMFORT NOTED. ALL NEEDS ATTENDED TO. WILL CONTINUE TO MONITOR
[2019-02-01 10:37] VITALS: BP 118/70
--- NOTE | 2019-02-01 13:00 | NUR ---
PATIENT SITTING UP IN BED EATING LUNCH AT THIS TIME. PATIENT TOLERATING DIET WELL. NO APPARENT DISTRESS OR DISCOMFORT NOTED. AT BEDSIDE. ALL NEEDS ATTENDED TO. WILL CONTINUE TO MONITOR
[2019-02-01 13:24] VITALS: BP 124/55
--- NOTE | 2019-02-01 14:45 | NUR ---
PATIENT STABLE TO BE DISCHARGED BACK TO BOARD AND CARE. DISCHARGE INSTRUCTIONS GIVEN WELL EDUCATION TO PATIENT, AND PATIENT'S DAUGHTER. INSTRUCTED FAMILY ABOUT FOLLOW UP APPOINTMENTS. PATIENT, AND PATIENT DAUGHTER VERBALIZE UNDERSTANDING. IV REMOVED WITH CATH INTACT. ID BANDS REMOVED. TELE MONITOR REMOVED AND RETURNED TO [facility]. ALL BELONGINGS WITH PATIENT. ALL QUESTIONS AND CONCERNS ADDRESSED. ALL NEEDS ATTENDED TO. ESCORTED DOWN TO THE LOBBY BY TRANSPORT TEAM.
== END 2019-02-01 14:44 | DRG 344 ==
LOC: ED 16:30 → IC 21:45 → DU 21:45 → MU 21:45 → IC 01-23 22:27 → DU 01-25 18:25
PROVIDERS: Emergency Medicine; Internal Medicine; Internal Medicine Gastroenterology; Internal Medicine Pulmonary Disease; ADMIT Internal Medicine Pulmonary Disease
PROC: 0D9L8ZZ Drainage of Transverse Colon, Via Natural or Artificial Opening Endoscopic (ICD-10-PCS; 2019-01-24)
PROC: 0D9N8ZZ Drainage of Sigmoid Colon, Via Natural or Artificial Opening Endoscopic (ICD-10-PCS; 2019-01-24)
PROC: 0DCL8ZZ Extirpation of Matter from Transverse Colon, Via Natural or Artificial Opening Endoscopic (ICD-10-PCS; 2019-01-24)
PROC: 0D9M8ZZ Drainage of Descending Colon, Via Natural or Artificial Opening Endoscopic (ICD-10-PCS; principal; 2019-01-24 12:00)
DX: K59.39 Other megacolon (principal); K56.2 Volvulus; Z68.1 Body mass index [BMI] 19.9 or less, adult; E86.0 Dehydration; K59.09 Other constipation; I48.2 Chronic atrial fibrillation; I12.9 Hypertensive chronic kidney disease with stage 1 through stage 4 chronic kidney disease, or unspecified chronic kidney disease; N18.3 Chronic kidney disease, stage 3 (moderate); N28.1 Cyst of kidney, acquired; G30.0 Alzheimer's disease with early onset; F02.80 Dementia in other diseases classified elsewhere, unspecified severity, without behavioral disturbance, psychotic disturbance, mood disturbance, and anxiety; Z79.01 Long term (current) use of anticoagulants
CPT/HCPCS: 45378; 83880; 84439; 87046; 87046-59; 97110-GP; 97112-GP; 97116-GP; 97530-GP; J0744; J1200; J1610; J1940; J2250; J2310; J2405; J2710; J2765; J3010; J3480; J3490; J7030; J7040; J7042; Q0092; Q9967

== ENCOUNTER 2019-03-02 19:00 | Inpatient (IN) | payer OTHER ==
[~2019-03-02] VITALS: Ht 180.3 cm; Wt 59.0 kg
[~2019-03-02 19:00] MED LIST changes: +DUL10S RC; +MAGL PO; +MEGESTROL AC40 MG/ML PO; +SEN PO
[2019-03-02 20:05] LABS: BASOPHIL % 0.5 % (0-2); PLATELET COUNT 173 x10^3mcL (130-400); RED CELL DISTRIBUTION WIDTH 14.8 % (11.5-14.5)
[2019-03-02 20:15] LABS: ALBUMIN 3.7 g/dL (3.4-5.0); ALKALINE PHOSPHATASE 20 U/L (46-116); ALT/SGPT 24 U/L (16-63); AST/SGOT 30 U/L (15-37); BILIRUBIN TOTAL 0.7 mg/dL (0.20-1.00); CALCIUM 9.6 mg/dL (8.5-10.1); CARBON DIOXIDE 22.1 mmol/L (21-32); CHLORIDE SERUM 115 mmol/L (98-107); CREATININE SERUM 3.3 mg/dL (0.7-1.3); GLUCOSE SERUM 155 mg/dL (74-106); MAGNESIUM 2.9 mg/dL (1.8-2.4); POTASSIUM SERUM 4.3 mmol/L (3.5-5.1); SODIUM SERUM 152 mmol/L (136-145); TOTAL PROTEIN, SERUM 8.1 g/dL (6.4-8.2)
[2019-03-02 21:18] LABS: microscopic required? YES; urine erythrocyte 3+ (NEGATIVE)
[2019-03-02] MEDS ORDERED: XARELTO10 M1 PO (23:33)
[2019-03-02] MEDS ORDERED: ALDACTONE25 MG PO (23:34)
[2019-03-02] MEDS ORDERED: METOPROLOL SUCC50 M2 PO (23:34)
[2019-03-02] MEDS ORDERED: DILTIAZEM HCL120 M2 PO (23:34)
[2019-03-03 00:26] VITALS: BP 107/58
[2019-03-03 00:33] VITALS: Ht 180.3 cm; Wt 59.0 kg
[2019-03-03 05:56] VITALS: BP 100/58
[2019-03-03 06:26] LABS: BASOPHIL % 0.3 % (0-2); PLATELET COUNT 146 x10^3mcL (130-400)
[2019-03-03 06:57] LABS: ALKALINE PHOSPHATASE 10 U/L (46-116); ALT/SGPT 22 U/L (16-63); AST/SGOT 29 U/L (15-37); BILIRUBIN TOTAL 0.63 mg/dL (0.20-1.00); CALCIUM 8.6 mg/dL (8.5-10.1); CARBON DIOXIDE 15.4 mmol/L (21-32); CHLORIDE SERUM 119 mmol/L (98-107); CREATININE SERUM 2.9 mg/dL (0.7-1.3); GLUCOSE SERUM 116 mg/dL (74-106); POTASSIUM SERUM 3.5 mmol/L (3.5-5.1); SODIUM SERUM 153 mmol/L (136-145); TOTAL PROTEIN, SERUM 6.9 g/dL (6.4-8.2)
[2019-03-03 06:58] LABS: ALBUMIN 3.3 g/dL (3.4-5.0)
[2019-03-03 07:02] VITALS: BP 107/53
[2019-03-03 07:06] LABS: RED CELL DISTRIBUTION WIDTH 14.6 % (11.5-14.5)
[2019-03-03 16:12] VITALS: BP 90/42
[2019-03-03 20:47] VITALS: BP 101/56
[2019-03-04 05:39] VITALS: BP 109/53
[2019-03-04 07:01] VITALS: BP 113/50
[2019-03-04 07:12] LABS: ALKALINE PHOSPHATASE 13 U/L (46-116); ALT/SGPT 26 U/L (16-63); AST/SGOT 32 U/L (15-37); BILIRUBIN TOTAL 0.85 mg/dL (0.20-1.00); CALCIUM 8.6 mg/dL (8.5-10.1); CARBON DIOXIDE 18.7 mmol/L (21-32); CHLORIDE SERUM 120 mmol/L (98-107); CREATININE SERUM 2.2 mg/dL (0.7-1.3); GLUCOSE SERUM 113 mg/dL (74-106); MAGNESIUM 2.8 mg/dL (1.8-2.4); POTASSIUM SERUM 3.6 mmol/L (3.5-5.1); SODIUM SERUM 155 mmol/L (136-145); TOTAL PROTEIN, SERUM 7.6 g/dL (6.4-8.2)
[2019-03-04 07:13] LABS: ALBUMIN 3.3 g/dL (3.4-5.0)
[2019-03-04 16:51] VITALS: BP 109/50
[2019-03-04 21:20] VITALS: BP 108/48
[2019-03-05 05:55] VITALS: BP 116/64
[2019-03-05 06:46] LABS: BASOPHIL % 0.1 % (0-2); PLATELET COUNT 134 x10^3mcL (130-400); RED CELL DISTRIBUTION WIDTH 14.5 % (11.5-14.5)
[2019-03-05 07:02] LABS: ALKALINE PHOSPHATASE 15 U/L (46-116); ALT/SGPT 23 U/L (16-63); AST/SGOT 29 U/L (15-37); BILIRUBIN TOTAL 0.85 mg/dL (0.20-1.00); CALCIUM 8.8 mg/dL (8.5-10.1); CARBON DIOXIDE 21.5 mmol/L (21-32); CHLORIDE SERUM 119 mmol/L (98-107); CREATININE SERUM 1.9 mg/dL (0.7-1.3); GLUCOSE SERUM 130 mg/dL (74-106); POTASSIUM SERUM 4.2 mmol/L (3.5-5.1); SODIUM SERUM 151 mmol/L (136-145); TOTAL PROTEIN, SERUM 6.9 g/dL (6.4-8.2)
[2019-03-05 07:06] LABS: ALBUMIN 3.2 g/dL (3.4-5.0)
[2019-03-05 09:00] VITALS: BP 102/59
[2019-03-05 17:18] VITALS: BP 108/58
[2019-03-05 21:30] VITALS: BP 113/58
[2019-03-06 05:56] VITALS: BP 98/61
[2019-03-06 06:02] LABS: BASOPHIL % 0.1 % (0-2)
[2019-03-06 06:05] LABS: PLATELET COUNT 120 x10^3mcL (130-400); RED CELL DISTRIBUTION WIDTH 14.7 % (11.5-14.5)
[2019-03-06 06:20] LABS: ALKALINE PHOSPHATASE 14 U/L (46-116); ALT/SGPT 20 U/L (16-63); AST/SGOT 23 U/L (15-37); BILIRUBIN TOTAL 0.64 mg/dL (0.20-1.00); CARBON DIOXIDE 21.9 mmol/L (21-32); CHLORIDE SERUM 113 mmol/L (98-107); CREATININE SERUM 1.6 mg/dL (0.7-1.3); GLUCOSE SERUM 129 mg/dL (74-106); PHOSPHOROUS 2.4 mg/dL (2.5-4.9); POTASSIUM SERUM 3.7 mmol/L (3.5-5.1); SODIUM SERUM 144 mmol/L (136-145); TOTAL PROTEIN, SERUM 6.2 g/dL (6.4-8.2)
[2019-03-06 06:21] LABS: ALBUMIN 2.9 g/dL (3.4-5.0)
[2019-03-06 09:00] VITALS: BP 125/59
[2019-03-06 18:28] VITALS: BP 103/53
[2019-03-06 21:13] VITALS: BP 103/58
[2019-03-07 05:54] VITALS: BP 99/55
[2019-03-07 06:51] LABS: ALKALINE PHOSPHATASE 12 U/L (46-116); ALT/SGPT 18 U/L (16-63); AST/SGOT 28 U/L (15-37); BILIRUBIN TOTAL 0.69 mg/dL (0.20-1.00); CALCIUM 7.7 mg/dL (8.5-10.1); CARBON DIOXIDE 19.9 mmol/L (21-32); CHLORIDE SERUM 109 mmol/L (98-107); CREATININE SERUM 1.8 mg/dL (0.7-1.3); GLUCOSE SERUM 146 mg/dL (74-106); MAGNESIUM 1.8 mg/dL (1.8-2.4); POTASSIUM SERUM 4.2 mmol/L (3.5-5.1); SODIUM SERUM 139 mmol/L (136-145)
[2019-03-07 06:52] LABS: PLATELET COUNT 124 x10^3mcL (130-400); RED CELL DISTRIBUTION WIDTH 14.9 % (11.5-14.5)
[2019-03-07 07:07] LABS: ALBUMIN 2.4 g/dL (3.4-5.0); TOTAL PROTEIN, SERUM 5.6 g/dL (6.4-8.2)
[2019-03-07 09:54] VITALS: BP 114/73
[2019-03-07 11:05] LABS: ATYPICAL LYMPH 0 %; BAND NEUTROPHIL 1 % (0-10); BASOPHIL 0 % (0-2); MONOCYTE 5 % (0-7); SEGMENTED NEUTROPHILS 93 % (37-75); rbc morphology (normal/abnorm) ABNORMAL (NORMAL)
[2019-03-07 11:06] LABS: PLATELET MORPHOLOGY PLATELETS DECREASED
[2019-03-07 17:09] VITALS: BP 128/77
[2019-03-07 20:34] VITALS: BP 99/42
[2019-03-07 21:01] VITALS: BP 97/53
[2019-03-08 05:24] VITALS: BP 115/62
[2019-03-08 06:52] LABS: BASOPHIL % 0.4 % (0-2); PLATELET COUNT 121 x10^3mcL (130-400); RED CELL DISTRIBUTION WIDTH 14.6 % (11.5-14.5)
[2019-03-08 06:53] LABS: CALCIUM 8.1 mg/dL (8.5-10.1); CARBON DIOXIDE 21.2 mmol/L (21-32); CHLORIDE SERUM 111 mmol/L (98-107); CREATININE SERUM 1.7 mg/dL (0.7-1.3); GLUCOSE SERUM 142 mg/dL (74-106); POTASSIUM SERUM 3.7 mmol/L (3.5-5.1); SODIUM SERUM 142 mmol/L (136-145)
[2019-03-08 10:00] VITALS: BP 122/77
[2019-03-08 16:21] VITALS: BP 101/51
[2019-03-08 21:26] VITALS: BP 112/53
[2019-03-09 06:27] VITALS: BP 121/68
[2019-03-09 06:38] LABS: BASOPHIL % 0.1 % (0-2)
[2019-03-09 06:47] LABS: PLATELET COUNT 115 x10^3mcL (130-400); RED CELL DISTRIBUTION WIDTH 14.9 % (11.5-14.5)
[2019-03-09 07:00] LABS: CALCIUM 7.9 mg/dL (8.5-10.1); CARBON DIOXIDE 20.2 mmol/L (21-32); CHLORIDE SERUM 111 mmol/L (98-107); CREATININE SERUM 1.5 mg/dL (0.7-1.3); GLUCOSE SERUM 134 mg/dL (74-106); MAGNESIUM 1.8 mg/dL (1.8-2.4); POTASSIUM SERUM 3.9 mmol/L (3.5-5.1); SODIUM SERUM 142 mmol/L (136-145)
[2019-03-09 07:28] VITALS: BP 107/75
[2019-03-09 13:20] VITALS: BP 106/51
[2019-03-09 17:49] VITALS: BP 132/73
[2019-03-09 21:48] VITALS: BP 104/62
[2019-03-09 23:50] VITALS: BP 114/69
[2019-03-10 06:07] VITALS: BP 116/68
[2019-03-10 09:00] VITALS: BP 110/61
[2019-03-10 13:02] VITALS: BP 110/61
[2019-03-10 13:56] LABS: acanthocyte (spur cell) 1+; burr cell (echinocyte) 3+; rbc morphology (normal/abnorm) ABNORMAL (NORMAL)
[2019-03-10 15:08] LABS: BASOPHIL % 0.1 % (0-2)
[2019-03-10 15:09] LABS: PLATELET COUNT 119 x10^3mcL (130-400)
[2019-03-10 15:43] LABS: CALCIUM 8.2 mg/dL (8.5-10.1); CARBON DIOXIDE 20.2 mmol/L (21-32); CHLORIDE SERUM 111 mmol/L (98-107); CREATININE SERUM 1.3 mg/dL (0.7-1.3); GLUCOSE SERUM 134 mg/dL (74-106); SODIUM SERUM 143 mmol/L (136-145)
[2019-03-10 17:00] VITALS: BP 115/62
[2019-03-10 20:39] VITALS: BP 113/54
[2019-03-10 22:30] VITALS: BP 104/52
[2019-03-11 06:10] VITALS: BP 113/62
[2019-03-11 07:00] LABS: ALKALINE PHOSPHATASE 19 U/L (46-116); ALT/SGPT 22 U/L (16-63); AST/SGOT 34 U/L (15-37); BILIRUBIN TOTAL 0.3 mg/dL (0.20-1.00); CALCIUM 8.1 mg/dL (8.5-10.1); CARBON DIOXIDE 21.6 mmol/L (21-32); CHLORIDE SERUM 110 mmol/L (98-107); CREATININE SERUM 1.2 mg/dL (0.7-1.3); GLUCOSE SERUM 115 mg/dL (74-106); PHOSPHOROUS 3.7 mg/dL (2.5-4.9); POTASSIUM SERUM 4.4 mmol/L (3.5-5.1); SODIUM SERUM 139 mmol/L (136-145)
[2019-03-11 07:01] LABS: ALBUMIN 2.1 g/dL (3.4-5.0); PLATELET COUNT 123 x10^3mcL (130-400); RED CELL DISTRIBUTION WIDTH 15.3 % (11.5-14.5); TOTAL PROTEIN, SERUM 5.8 g/dL (6.4-8.2)
[2019-03-11 09:29] VITALS: BP 117/64
[2019-03-11 15:13] LABS: BAND NEUTROPHIL 2 % (0-10); BASOPHIL 0 % (0-2); MONOCYTE 5 % (0-7); SEGMENTED NEUTROPHILS 81 % (37-75)
[2019-03-11 15:14] LABS: PLATELET MORPHOLOGY PLATELETS NORMAL; rbc morphology (normal/abnorm) NORMAL (NORMAL)
[2019-03-11 17:11] VITALS: BP 129/74
[2019-03-11 21:36] VITALS: BP 112/61
[2019-03-12 05:59] VITALS: BP 122/58
[2019-03-12 09:33] VITALS: BP 120/62
[2019-03-12 16:39] VITALS: BP 100/44
[2019-03-12 21:30] VITALS: BP 105/49
[2019-03-13 05:43] VITALS: BP 108/61
[2019-03-13 06:22] LABS: BASOPHIL % 0.2 % (0-2); PLATELET COUNT 137 x10^3mcL (130-400)
[2019-03-13 06:44] LABS: RED CELL DISTRIBUTION WIDTH 15.6 % (11.5-14.5)
[2019-03-13 07:10] LABS: ALKALINE PHOSPHATASE 19 U/L (46-116); ALT/SGPT 27 U/L (16-63); AST/SGOT 34 U/L (15-37); BILIRUBIN TOTAL 0.4 mg/dL (0.20-1.00); CARBON DIOXIDE 20.5 mmol/L (21-32); CHLORIDE SERUM 106 mmol/L (98-107); CREATININE SERUM 1.2 mg/dL (0.7-1.3); GLUCOSE SERUM 87 mg/dL (74-106); MAGNESIUM 1.7 mg/dL (1.8-2.4); PHOSPHOROUS 4.1 mg/dL (2.5-4.9); POTASSIUM SERUM 4.8 mmol/L (3.5-5.1); SODIUM SERUM 137 mmol/L (136-145)
[2019-03-13 07:16] LABS: ALBUMIN 2.2 g/dL (3.4-5.0); TOTAL PROTEIN, SERUM 5.8 g/dL (6.4-8.2)
[2019-03-13 08:53] VITALS: BP 108/61
[2019-03-13 11:15] VITALS: BP 104/58
[2019-03-13 16:30] VITALS: BP 110/84
[2019-03-13 20:33] VITALS: BP 98/52
[2019-03-14 05:12] VITALS: BP 117/65
[2019-03-14 07:12] LABS: ALBUMIN 2.3 g/dL (3.4-5.0); ALKALINE PHOSPHATASE 21 U/L (46-116); ALT/SGPT 37 U/L (16-63); AST/SGOT 47 U/L (15-37); BILIRUBIN TOTAL 0.43 mg/dL (0.20-1.00); CARBON DIOXIDE 22.3 mmol/L (21-32); CHLORIDE SERUM 106 mmol/L (98-107); CREATININE SERUM 1.3 mg/dL (0.7-1.3); GLUCOSE SERUM 93 mg/dL (74-106); MAGNESIUM 1.8 mg/dL (1.8-2.4); POTASSIUM SERUM 4.9 mmol/L (3.5-5.1); SODIUM SERUM 137 mmol/L (136-145); TOTAL PROTEIN, SERUM 5.9 g/dL (6.4-8.2)
[2019-03-14 09:50] VITALS: BP 101/51
[2019-03-14 18:32] VITALS: BP 106/61
[2019-03-14 19:23] VITALS: BP 106/61
[2019-03-14 20:53] VITALS: BP 123/60
[2019-03-15 06:10] VITALS: BP 124/64
[2019-03-15 07:32] LABS: BASOPHIL % 0.4 % (0-2); PLATELET COUNT 179 x10^3mcL (130-400)
[2019-03-15 07:39] LABS: ALKALINE PHOSPHATASE 28 U/L (46-116); ALT/SGPT 46 U/L (16-63); AST/SGOT 54 U/L (15-37); BILIRUBIN TOTAL 0.48 mg/dL (0.20-1.00); CALCIUM 8.2 mg/dL (8.5-10.1); CARBON DIOXIDE 25.4 mmol/L (21-32); CHLORIDE SERUM 106 mmol/L (98-107); CREATININE SERUM 1.3 mg/dL (0.7-1.3); GLUCOSE SERUM 103 mg/dL (74-106); MAGNESIUM 1.9 mg/dL (1.8-2.4); PHOSPHOROUS 3.2 mg/dL (2.5-4.9); POTASSIUM SERUM 5.2 mmol/L (3.5-5.1); RED CELL DISTRIBUTION WIDTH 15.5 % (11.5-14.5); SODIUM SERUM 138 mmol/L (136-145); TOTAL PROTEIN, SERUM 6.4 g/dL (6.4-8.2)
[2019-03-15 07:40] LABS: ALBUMIN 2.6 g/dL (3.4-5.0)
[2019-03-15 09:30] VITALS: BP 106/65
[2019-03-15 17:21] VITALS: BP 120/61
[2019-03-15 21:37] VITALS: BP 109/54
[2019-03-16 06:16] LABS: BASOPHIL % 0.3 % (0-2); PLATELET COUNT 164 x10^3mcL (130-400)
[2019-03-16 06:18] VITALS: BP 125/58
[2019-03-16 06:51] LABS: ALKALINE PHOSPHATASE 26 U/L (46-116); ALT/SGPT 42 U/L (16-63); AST/SGOT 46 U/L (15-37); BILIRUBIN TOTAL 0.4 mg/dL (0.20-1.00); CALCIUM 7.7 mg/dL (8.5-10.1); CARBON DIOXIDE 24.7 mmol/L (21-32); CHLORIDE SERUM 106 mmol/L (98-107); CREATININE SERUM 1.2 mg/dL (0.7-1.3); GLUCOSE SERUM 103 mg/dL (74-106); MAGNESIUM 1.8 mg/dL (1.8-2.4); SODIUM SERUM 137 mmol/L (136-145)
[2019-03-16 06:52] LABS: ALBUMIN 2.3 g/dL (3.4-5.0); TOTAL PROTEIN, SERUM 5.9 g/dL (6.4-8.2)
[2019-03-16 06:56] LABS: RED CELL DISTRIBUTION WIDTH 16.1 % (11.5-14.5)
[2019-03-16 10:16] VITALS: BP 109/55
[2019-03-16 10:46] VITALS: BP 109/55
[2019-03-16 17:28] VITALS: BP 96/45
[2019-03-16 21:31] VITALS: BP 110/61
[2019-03-17 05:35] VITALS: BP 104/58
[2019-03-17 07:24] VITALS: BP 107/57
[2019-03-17 16:34] VITALS: BP 122/59
[2019-03-17 21:37] VITALS: BP 113/54
[2019-03-18 06:17] LABS: BASOPHIL % 0.3 % (0-2); PLATELET COUNT 199 x10^3mcL (130-400)
[2019-03-18 06:35] VITALS: BP 112/59
[2019-03-18 06:51] LABS: ALKALINE PHOSPHATASE 23 U/L (46-116); ALT/SGPT 61 U/L (16-63); AST/SGOT 59 U/L (15-37); BILIRUBIN TOTAL 0.5 mg/dL (0.20-1.00); CARBON DIOXIDE 24.9 mmol/L (21-32); CHLORIDE SERUM 105 mmol/L (98-107); CREATININE SERUM 1.1 mg/dL (0.7-1.3); GLUCOSE SERUM 88 mg/dL (74-106); MAGNESIUM 1.9 mg/dL (1.8-2.4); POTASSIUM SERUM 4.7 mmol/L (3.5-5.1); SODIUM SERUM 137 mmol/L (136-145); TOTAL PROTEIN, SERUM 6.5 g/dL (6.4-8.2)
[2019-03-18 06:56] LABS: ALBUMIN 2.5 g/dL (3.4-5.0)
[2019-03-18 06:58] LABS: RED CELL DISTRIBUTION WIDTH 15.8 % (11.5-14.5)
[2019-03-18 07:04] VITALS: BP 107/52; BP 166/54
[2019-03-18 15:29] VITALS: BP 96/52
[2019-03-18 20:23] VITALS: BP 100/52
[2019-03-19 05:21] VITALS: BP 107/60
[2019-03-19 07:09] LABS: BASOPHIL % 0.6 % (0-2); PLATELET COUNT 213 x10^3mcL (130-400)
[2019-03-19 07:14] LABS: RED CELL DISTRIBUTION WIDTH 15.7 % (11.5-14.5)
[2019-03-19 09:40] VITALS: BP 112/59
[2019-03-19] MEDS ORDERED: SEN PO (12:35)
[2019-03-19] MEDS ORDERED: CARDIZEM CD180 MG PO (12:36)
[2019-03-19 12:45] VITALS: BP 112/59
== END 2019-03-19 13:35 | DRG 329 ==
LOC: ED 19:00 → MU 23:08
PROVIDERS: Emergency Medicine; Internal Medicine; Internal Medicine Pulmonary Disease; Surgery; ADMIT Internal Medicine Pulmonary Disease
PROC: 0D9H0ZZ Drainage of Cecum, Open Approach (ICD-10-PCS; 2019-03-06)
PROC: 0D1N074 Bypass Sigmoid Colon to Cutaneous with Autologous Tissue Substitute, Open Approach (ICD-10-PCS; 2019-03-06)
PROC: 0D1 Gastrointestinal System, Bypass (ICD-10-PCS; principal; 2019-03-06 15:00)
DX: K59.39 Other megacolon (principal); K56.2 Volvulus; G93.41 Metabolic encephalopathy; N39.0 Urinary tract infection, site not specified; N17.9 Acute kidney failure, unspecified; E87.0 Hyperosmolality and hypernatremia; Z68.1 Body mass index [BMI] 19.9 or less, adult; I12.9 Hypertensive chronic kidney disease with stage 1 through stage 4 chronic kidney disease, or unspecified chronic kidney disease; E86.0 Dehydration; N18.3 Chronic kidney disease, stage 3 (moderate); A49.8 Other bacterial infections of unspecified site; R54 Age-related physical debility; G30.9 Alzheimer's disease, unspecified; F02.80 Dementia in other diseases classified elsewhere, unspecified severity, without behavioral disturbance, psychotic disturbance, mood disturbance, and anxiety; E83.39 Other disorders of phosphorus metabolism; I48.91 Unspecified atrial fibrillation; Z74.01 Bed confinement status
CPT/HCPCS: 82962; 83880; 87046; 87046-59; 87804; 92526-GN; 92610; 92610-GN; 97110-GP; 97116-GP; 97530-GP; A4628; J0330; J0696; J1940; J1956; J2250; J2704; J2765; J3010; J3480; J3490; J7040; J7042; J7070; J7120; J7131; Q0092